=== PATIENT | female | born 1955 | race Caucasian/White ===

== ENCOUNTER 2017-11-25 09:43 | Inpatient (IN) ==
[2017-11-25 13:42] LABS: Basophils # 0.1 10*3/uL (0.0-0.2); Basophils % 0.4 % (0.0-0.8); Eosinophils % 0.1 % (0.00-10.9); Hematocrit 43.7 VOL% (35.7-47.0); Hemoglobin 14.1 GM/DL (12.0-16.0); Immature Granulocytes % 4.1 %; Immature Granulocytes Absolute 0.72 #; Lymphocytes # 1.7 10*3/uL (1.4-4.0); Lymphocytes % 9.7 % (21.3-54.2); Mean Corpuscular HGB Conc 32.3 GM/DL (32-36); Mean Corpuscular Hemoglobin 28 PG (27-34); Mean Corpuscular Volume 87.9 FL (87-102); Mean Platelet Volume 9.8 FL (9.6-12.0); Monocytes # 0.7 10*3/uL (0.11-0.8); Monocytes % 4.2 % (1.7-12.7); Neutrophils # 14.3 10*3/uL (1.4-7.4); Neutrophils % 81.5 % (38.7-73.9); Platelet Count 402 T/CUMM (130-400); Red Blood Count 4.97 MC/CUMM (3.8-5.5); White Blood Count 17.5 T/CUMM (4-12)
[2017-11-25] MEDS ORDERED: DICLOFENAC 1% GEL 100 GM TUBE TOP PRN (14:07)
[2017-11-25 14:24] LABS: Albumin 3.6 G/DL (3.4-5.0); Bilirubin,Total 0.4 MG/DL (0.2-1.0); Calcium 9.5 MG/DL (8.5-10.1); Total Protein 6.9 G/DL (6.4-8.3)
[2017-11-25 14:25] LABS: Magnesium 2.4 MG/DL (1.8-2.4); Osmolality,Calculated 281.7 MOS/KG (273-304); Potassium 4.5 MMOL/L (3.5-5.1); Thyroid Stimulating Hormone 1.89 uIU/ml (0.358-3.74)
[2017-11-25 14:31] LABS: Band Neutrophils 1 % (0-10); Lymphocytes 12 % (20-55); Segmented Neutrophils 82 % (50-85); Total Cells Counted 100
[2017-11-25 14:32] LABS: Platelet Estimate Increased
[2017-11-25] MEDS: ALBUTEROL/IPRATROPIUM 3 ML NEB RESP TX SCH ×2 (14:32→19:46)
[2017-11-25] MEDS: PREGABALIN 50 MG CAPSULE PO SCH ×2 (14:50→20:54)
[2017-11-25] MEDS: methylPREDNISolone SOD SUC 40 MG/1 ML VIAL IV SCH ×2 (14:51→20:55)
[2017-11-25] MEDS: AMINOPHYLLINE 250 MG in SODIUM CHLORIDE 0.9% 100 ML IV ONE ×2 (14:53→16:37)
[2017-11-25] MEDS: FLUCONAZOLE 200 MG TABLET PO SCH (15:48)
[2017-11-25] MEDS: POTASSIUM IODIDE ORAL SOLN 1,000 MG/ML BOTTLE PO SCH ×2 (15:49→20:50)
[2017-11-25] MEDS: ALBUTEROL 0.4 MG/ML 30 ML/BOTTLE PO SCH ×2 (15:49→20:52)
[2017-11-25] MEDS: MEROPENEM 1,000 MG in SYRINGE 1 EACH IV SCH ×2 (15:50→22:35)
[2017-11-25] MEDS: AMINOPHYLLINE 500 MG in SODIUM CHLORIDE 0.9% 480 ML IV SCH (20:50)
[2017-11-25] MEDS: AZELASTINE NASAL 137 MCG/SPRAY 30 ML BOTTLE BOTH NARES SCH (20:53)
[2017-11-25] MEDS: BUDESONIDE/FORMOTEROL 80-4.5 INHALER 6.9 GM INH SCH (20:53)
[2017-11-25] MEDS: MONTELUKAST 10 MG TABLET PO SCH (20:54)
[2017-11-25] MEDS: amLODIPine 10 MG TABLET PO SCH (20:54)
[2017-11-25] MEDS: METOPROLOL SUCCINATE XL 25 MG TABLET PO SCH (20:54)
[2017-11-25 21:30] LABS: Apearance,Urine CLEAR (Clear); Bilirubin,Urine Negative (Negative); Blood, Urine Negative (Negative); Glucose,Urine (UA) 50 mg/dL (Negative); Ketones,Urine Negative (Negative); Nitrite,Urine Negative (Negative); Protein,Urine Negative; RBC,Urine <1 /HPF (0-4); Squamous Epithelial Cell,Urine Occasional /HPF (0-10); Urine Color Colorless (Yellow); Urine Specific Gravity 1.005 (1.001-1.035); Urine Urobilinogen < 2.0 EU/DL (0.2-1.0); WBC,Urine <1 /HPF (0-6)
[2017-11-25] MEDS: IMIPRAMINE 25 MG TABLET PO SCH (22:33)
[2017-11-25] MEDS: aMILoride 5 MG TABLET PO SCH (22:33)
[2017-11-25] MEDS ORDERED: PANTOPRAZOLE 40 MG TABLET PO ONE (22:40)
[2017-11-26] MEDS: ALBUTEROL/IPRATROPIUM 3 ML NEB RESP TX PRN (02:58)
[2017-11-26] MEDS: methylPREDNISolone SOD SUC 40 MG/1 ML VIAL IV SCH ×3 (06:19→20:15)
[2017-11-26] MEDS: MEROPENEM 1,000 MG in SYRINGE 1 EACH IV SCH ×3 (06:22→21:08)
[2017-11-26 06:41] LABS: Basophils # 0.1 10*3/uL (0.0-0.2); Basophils % 0.5 % (0.0-0.8); Hematocrit 40.6 VOL% (35.7-47.0); Hemoglobin 13.3 GM/DL (12.0-16.0); Immature Granulocytes % 6.7 %; Immature Granulocytes Absolute 1.16 #; Lymphocytes # 1.6 10*3/uL (1.4-4.0); Lymphocytes % 9.1 % (21.3-54.2); Mean Corpuscular HGB Conc 32.8 GM/DL (32-36); Mean Corpuscular Hemoglobin 28 PG (27-34); Mean Corpuscular Volume 86.6 FL (87-102); Monocytes # 0.6 10*3/uL (0.11-0.8); Monocytes % 3.2 % (1.7-12.7); Neutrophils # 14.1 10*3/uL (1.4-7.4); Neutrophils % 80.5 % (38.7-73.9); Platelet Count 408 T/CUMM (130-400); Red Blood Count 4.69 MC/CUMM (3.8-5.5); Red Cell Distribution Width 13.8 % (9.3-17.3); White Blood Count 17.4 T/CUMM (4-12)
[2017-11-26 07:10] LABS: Calcium 8.9 MG/DL (8.5-10.1); Potassium 3.9 MMOL/L (3.5-5.1)
[2017-11-26] MEDS: ALBUTEROL/IPRATROPIUM 3 ML NEB RESP TX SCH ×4 (07:39→19:19)
[2017-11-26 07:42] LABS: Hypochromasia 1+; Lymphocytes 14 % (20-55); Metamyelocytes 1 %; Microcytosis 1+; Segmented Neutrophils 80 % (50-85); Total Cells Counted 100
[2017-11-26 07:43] LABS: Platelet Estimate Increased
[2017-11-26] MEDS: ESTRADIOL 1 MG TABLET PO SCH (09:19)
[2017-11-26] MEDS: METOPROLOL SUCCINATE XL 25 MG TABLET PO SCH ×2 (09:19→20:15)
[2017-11-26] MEDS: CALCIUM (CARBONATE)/VITAMIN D 600 MG-400 UNIT TABLET PO SCH (09:19)
[2017-11-26] MEDS: FLUTICASONE 50 MCG NASAL SPRAY 16 GM BOTTLE BOTH NARES SCH (09:20)
[2017-11-26] MEDS: POTASSIUM IODIDE ORAL SOLN 1,000 MG/ML BOTTLE PO SCH ×3 (09:20→20:16)
[2017-11-26] MEDS: PANTOPRAZOLE 40 MG TABLET PO SCH (09:20)
[2017-11-26] MEDS: PREGABALIN 50 MG CAPSULE PO SCH ×3 (09:20→20:15)
[2017-11-26] MEDS: MONTELUKAST 10 MG TABLET PO SCH ×2 (09:20→20:15)
[2017-11-26] MEDS: aMILoride 5 MG TABLET PO SCH ×2 (09:20→20:17)
[2017-11-26] MEDS: amLODIPine 5 MG TABLET PO SCH (09:20)
[2017-11-26] MEDS: AZELASTINE NASAL 137 MCG/SPRAY 30 ML BOTTLE BOTH NARES SCH ×2 (09:20→20:16)
[2017-11-26] MEDS: POTASSIUM CHLORIDE 10 MEQ TABLET PO SCH (09:20)
[2017-11-26] MEDS: FLUCONAZOLE 200 MG TABLET PO SCH (09:20)
[2017-11-26] MEDS: BUDESONIDE/FORMOTEROL 80-4.5 INHALER 6.9 GM INH SCH ×2 (09:21→20:16)
[2017-11-26] MEDS: ALBUTEROL 0.4 MG/ML 30 ML/BOTTLE PO SCH ×3 (09:21→20:15)
[2017-11-26] MEDS: AMINOPHYLLINE 500 MG in SODIUM CHLORIDE 0.9% 480 ML IV SCH (18:03)
[2017-11-26] MEDS: IMIPRAMINE 25 MG TABLET PO SCH (20:15)
[2017-11-26] MEDS: amLODIPine 10 MG TABLET PO SCH (20:15)
[2017-11-26] MEDS ORDERED: PANTOPRAZOLE 40 MG TABLET PO ONE (22:28)
[2017-11-27] MEDS: ALBUTEROL/IPRATROPIUM 3 ML NEB RESP TX PRN ×2 (01:15→05:15)
[2017-11-27] MEDS: EPINEPHrine 1 MG/ML VIAL SUBCUT PRN (04:03)
[2017-11-27] MEDS: MEROPENEM 1,000 MG in SYRINGE 1 EACH IV SCH ×3 (05:10→21:17)
[2017-11-27] MEDS: methylPREDNISolone SOD SUC 40 MG/1 ML VIAL IV SCH ×3 (05:11→21:17)
[2017-11-27 06:35] LABS: Basophils # 0.1 10*3/uL (0.0-0.2); Basophils % 0.3 % (0.0-0.8); Hematocrit 37.5 VOL% (35.7-47.0); Hemoglobin 12.4 GM/DL (12.0-16.0); Immature Granulocytes % 6.9 %; Immature Granulocytes Absolute 1.86 #; Lymphocytes # 1.9 10*3/uL (1.4-4.0); Mean Corpuscular HGB Conc 33.1 GM/DL (32-36); Mean Corpuscular Hemoglobin 29 PG (27-34); Mean Corpuscular Volume 86.6 FL (87-102); Monocytes # 1.2 10*3/uL (0.11-0.8); Monocytes % 4.5 % (1.7-12.7); Neutrophils # 21.7 10*3/uL (1.4-7.4); Neutrophils % 81.3 % (38.7-73.9); Platelet Count 403 T/CUMM (130-400); Red Blood Count 4.33 MC/CUMM (3.8-5.5); Red Cell Distribution Width 13.9 % (9.3-17.3); White Blood Count 26.8 T/CUMM (4-12)
[2017-11-27 07:03] LABS: Calcium 9.5 MG/DL (8.5-10.1)
[2017-11-27 07:04] LABS: Potassium 4.8 MMOL/L (3.5-5.1)
[2017-11-27 07:36] LABS: Band Neutrophils 4 % (0-10); Lymphocytes 5 % (20-55); Nucleated Red Blood Cells 1 (0-5); Segmented Neutrophils 87 % (50-85); Total Cells Counted 100
[2017-11-27 07:38] LABS: Polychromasia Slight
[2017-11-27] MEDS: ALBUTEROL/IPRATROPIUM 3 ML NEB RESP TX SCH ×4 (07:43→20:20)
[2017-11-27] MEDS: ESTRADIOL 1 MG TABLET PO SCH (08:52)
[2017-11-27] MEDS: MONTELUKAST 10 MG TABLET PO SCH ×2 (08:52→21:17)
[2017-11-27] MEDS: aMILoride 5 MG TABLET PO SCH ×2 (08:52→21:17)
[2017-11-27] MEDS: PANTOPRAZOLE 40 MG TABLET PO SCH (08:53)
[2017-11-27] MEDS: PREGABALIN 50 MG CAPSULE PO SCH ×3 (08:53→21:17)
[2017-11-27] MEDS: CALCIUM (CARBONATE)/VITAMIN D 600 MG-400 UNIT TABLET PO SCH (08:53)
[2017-11-27] MEDS: POTASSIUM CHLORIDE 10 MEQ TABLET PO SCH (08:53)
[2017-11-27] MEDS: amLODIPine 5 MG TABLET PO SCH (08:53)
[2017-11-27] MEDS: METOPROLOL SUCCINATE XL 25 MG TABLET PO SCH ×2 (08:53→21:17)
[2017-11-27] MEDS: FLUCONAZOLE 200 MG TABLET PO SCH (08:54)
[2017-11-27] MEDS: POTASSIUM IODIDE ORAL SOLN 1,000 MG/ML BOTTLE PO SCH ×3 (08:54→21:19)
[2017-11-27] MEDS: ALBUTEROL 0.4 MG/ML 30 ML/BOTTLE PO SCH ×3 (08:54→21:20)
[2017-11-27] MEDS: AZELASTINE NASAL 137 MCG/SPRAY 30 ML BOTTLE BOTH NARES SCH ×2 (09:00→21:19)
[2017-11-27] MEDS: FLUTICASONE 50 MCG NASAL SPRAY 16 GM BOTTLE BOTH NARES SCH (09:01)
[2017-11-27] MEDS: BUDESONIDE/FORMOTEROL 80-4.5 INHALER 6.9 GM INH SCH ×2 (09:01→21:19)
[2017-11-27] MEDS: AMINOPHYLLINE 500 MG in SODIUM CHLORIDE 0.9% 480 ML IV SCH (17:36)
[2017-11-27] MEDS: amLODIPine 10 MG TABLET PO SCH (21:17)
[2017-11-27] MEDS: IMIPRAMINE 25 MG TABLET PO SCH (21:17)
[2017-11-27] MEDS: ATORVASTATIN 10 MG TABLET PO SCH (21:17)
[2017-11-28] MEDS: ALBUTEROL/IPRATROPIUM 3 ML NEB RESP TX PRN ×2 (00:16→04:25)
[2017-11-28] MEDS: methylPREDNISolone SOD SUC 40 MG/1 ML VIAL IV SCH ×3 (05:38→21:27)
[2017-11-28] MEDS: MEROPENEM 1,000 MG in SYRINGE 1 EACH IV SCH ×3 (05:39→22:46)
[2017-11-28 06:05] LABS: Basophils # 0.1 10*3/uL (0.0-0.2); Basophils % 0.5 % (0.0-0.8); Hematocrit 38.9 VOL% (35.7-47.0); Hemoglobin 12.7 GM/DL (12.0-16.0); Immature Granulocytes % 8.1 %; Immature Granulocytes Absolute 2.31 #; Lymphocytes # 1.3 10*3/uL (1.4-4.0); Lymphocytes % 4.5 % (21.3-54.2); Mean Corpuscular HGB Conc 32.6 GM/DL (32-36); Mean Corpuscular Hemoglobin 28 PG (27-34); Monocytes # 1.3 10*3/uL (0.11-0.8); Monocytes % 4.4 % (1.7-12.7); Neutrophils # 23.5 10*3/uL (1.4-7.4); Neutrophils % 82.5 % (38.7-73.9); Platelet Count 398 T/CUMM (130-400); Red Blood Count 4.47 MC/CUMM (3.8-5.5); White Blood Count 28.5 T/CUMM (4-12)
[2017-11-28 06:26] LABS: Hypochromasia 1+; Lymphocytes 9 % (20-55); Metamyelocytes 2 %; Microcytosis Slight; Segmented Neutrophils 86 % (50-85); Total Cells Counted 100
[2017-11-28 06:27] LABS: Platelet Estimate Normal
[2017-11-28 06:32] LABS: Calcium 9.3 MG/DL (8.5-10.1); Osmolality,Calculated 283.1 MOS/KG (273-304); Potassium 4.6 MMOL/L (3.5-5.1)
[2017-11-28] MEDS: ALBUTEROL/IPRATROPIUM 3 ML NEB RESP TX SCH ×4 (07:42→20:14)
[2017-11-28] MEDS: CLORAZEPATE 3.75 MG TABLET PO PRN (09:11)
[2017-11-28] MEDS: amLODIPine 5 MG TABLET PO SCH (09:11)
[2017-11-28] MEDS: ESTRADIOL 1 MG TABLET PO SCH (09:11)
[2017-11-28] MEDS: CALCIUM (CARBONATE)/VITAMIN D 600 MG-400 UNIT TABLET PO SCH (09:11)
[2017-11-28] MEDS: MONTELUKAST 10 MG TABLET PO SCH ×2 (09:11→21:25)
[2017-11-28] MEDS: METOPROLOL SUCCINATE XL 25 MG TABLET PO SCH ×2 (09:11→21:27)
[2017-11-28] MEDS: POTASSIUM CHLORIDE 10 MEQ TABLET PO SCH (09:12)
[2017-11-28] MEDS: BENZONATATE 100 MG CAPSULE PO PRN ×2 (09:12→21:26)
[2017-11-28] MEDS: FLUCONAZOLE 200 MG TABLET PO SCH (09:12)
[2017-11-28] MEDS: FLUTICASONE 50 MCG NASAL SPRAY 16 GM BOTTLE BOTH NARES SCH (09:12)
[2017-11-28] MEDS: AZELASTINE NASAL 137 MCG/SPRAY 30 ML BOTTLE BOTH NARES SCH ×2 (09:13→21:31)
[2017-11-28] MEDS: PANTOPRAZOLE 40 MG TABLET PO SCH (09:13)
[2017-11-28] MEDS: PREGABALIN 50 MG CAPSULE PO SCH ×3 (09:13→21:26)
[2017-11-28] MEDS: aMILoride 5 MG TABLET PO SCH ×2 (09:13→21:39)
[2017-11-28] MEDS: POTASSIUM IODIDE ORAL SOLN 1,000 MG/ML BOTTLE PO SCH ×3 (09:14→21:31)
[2017-11-28] MEDS: BUDESONIDE/FORMOTEROL 80-4.5 INHALER 6.9 GM INH SCH ×2 (09:14→21:31)
[2017-11-28] MEDS: ALBUTEROL 0.4 MG/ML 30 ML/BOTTLE PO SCH ×3 (09:14→21:40)
[2017-11-28] MEDS: AMINOPHYLLINE 500 MG in SODIUM CHLORIDE 0.9% 480 ML IV SCH (18:39)
[2017-11-28] MEDS: amLODIPine 10 MG TABLET PO SCH (21:26)
[2017-11-28] MEDS: IMIPRAMINE 25 MG TABLET PO SCH (21:27)
[2017-11-28] MEDS: ACETAMINOPHEN 325 MG TABLET PO PRN (22:50)
[2017-11-29] MEDS: ALBUTEROL/IPRATROPIUM 3 ML NEB RESP TX PRN (00:43)
[2017-11-29] MEDS: EPINEPHrine 1 MG/ML VIAL SUBCUT PRN (02:12)
[2017-11-29] MEDS: methylPREDNISolone SOD SUC 40 MG/1 ML VIAL IV SCH ×3 (06:18→20:47)
[2017-11-29] MEDS: MEROPENEM 1,000 MG in SYRINGE 1 EACH IV SCH ×3 (06:21→21:33)
[2017-11-29] MEDS: ALBUTEROL/IPRATROPIUM 3 ML NEB RESP TX SCH ×4 (07:43→20:03)
[2017-11-29] MEDS: CLORAZEPATE 3.75 MG TABLET PO PRN (09:00)
[2017-11-29] MEDS: PREGABALIN 50 MG CAPSULE PO SCH (09:00)
[2017-11-29] MEDS: PANTOPRAZOLE 40 MG TABLET PO SCH (09:00)
[2017-11-29] MEDS: CALCIUM (CARBONATE)/VITAMIN D 600 MG-400 UNIT TABLET PO SCH (09:00)
[2017-11-29] MEDS: POTASSIUM CHLORIDE 10 MEQ TABLET PO SCH (09:00)
[2017-11-29] MEDS: METOPROLOL SUCCINATE XL 25 MG TABLET PO SCH ×2 (09:00→20:47)
[2017-11-29] MEDS: FLUTICASONE 50 MCG NASAL SPRAY 16 GM BOTTLE BOTH NARES SCH (09:01)
[2017-11-29] MEDS: aMILoride 5 MG TABLET PO SCH ×2 (09:01→20:46)
[2017-11-29] MEDS: amLODIPine 5 MG TABLET PO SCH (09:01)
[2017-11-29] MEDS: MONTELUKAST 10 MG TABLET PO SCH ×2 (09:01→20:46)
[2017-11-29] MEDS: FLUCONAZOLE 200 MG TABLET PO SCH (09:01)
[2017-11-29] MEDS: ATORVASTATIN 10 MG TABLET PO SCH (09:01)
[2017-11-29] MEDS: ESTRADIOL 1 MG TABLET PO SCH (09:01)
[2017-11-29] MEDS: BUDESONIDE/FORMOTEROL 80-4.5 INHALER 6.9 GM INH SCH ×2 (09:02→20:50)
[2017-11-29] MEDS: POTASSIUM IODIDE ORAL SOLN 1,000 MG/ML BOTTLE PO SCH ×3 (09:02→20:49)
[2017-11-29] MEDS: AZELASTINE NASAL 137 MCG/SPRAY 30 ML BOTTLE BOTH NARES SCH ×2 (09:02→20:49)
[2017-11-29] MEDS: ALBUTEROL 0.4 MG/ML 30 ML/BOTTLE PO SCH (10:01)
[2017-11-29] MEDS: AMINOPHYLLINE 500 MG in SODIUM CHLORIDE 0.9% 480 ML IV SCH (12:44)
[2017-11-29] MEDS: ALBUTEROL 2 MG TABLET PO SCH ×3 (14:41→21:32)
[2017-11-29] MEDS: amLODIPine 10 MG TABLET PO SCH (20:46)
[2017-11-29] MEDS: IMIPRAMINE 25 MG TABLET PO SCH (20:46)
[2017-11-29] MEDS: ACETAMINOPHEN 325 MG TABLET PO PRN (23:25)
[2017-11-30] MEDS: ALBUTEROL/IPRATROPIUM 3 ML NEB RESP TX PRN (02:37)
[2017-11-30] MEDS: methylPREDNISolone SOD SUC 40 MG/1 ML VIAL IV SCH ×3 (05:26→21:18)
[2017-11-30] MEDS: MEROPENEM 1,000 MG in SYRINGE 1 EACH IV SCH ×3 (05:29→21:17)
[2017-11-30] MEDS: ALBUTEROL/IPRATROPIUM 3 ML NEB RESP TX SCH ×4 (07:27→20:06)
[2017-11-30] MEDS: aMILoride 5 MG TABLET PO SCH ×2 (08:50→21:18)
[2017-11-30] MEDS: PANTOPRAZOLE 40 MG TABLET PO SCH (08:50)
[2017-11-30] MEDS: ALBUTEROL 2 MG TABLET PO SCH ×3 (08:50→21:18)
[2017-11-30] MEDS: ESTRADIOL 1 MG TABLET PO SCH (08:51)
[2017-11-30] MEDS: FLUCONAZOLE 200 MG TABLET PO SCH (08:51)
[2017-11-30] MEDS: amLODIPine 5 MG TABLET PO SCH (08:51)
[2017-11-30] MEDS: MONTELUKAST 10 MG TABLET PO SCH ×2 (08:51→21:19)
[2017-11-30] MEDS: CALCIUM (CARBONATE)/VITAMIN D 600 MG-400 UNIT TABLET PO SCH (08:51)
[2017-11-30] MEDS: PREGABALIN 50 MG CAPSULE PO SCH (08:51)
[2017-11-30] MEDS: METOPROLOL SUCCINATE XL 25 MG TABLET PO SCH ×2 (08:51→21:19)
[2017-11-30] MEDS: AZELASTINE NASAL 137 MCG/SPRAY 30 ML BOTTLE BOTH NARES SCH ×2 (08:52→21:19)
[2017-11-30] MEDS: POTASSIUM IODIDE ORAL SOLN 1,000 MG/ML BOTTLE PO SCH ×4 (08:52→21:19)
[2017-11-30] MEDS: FLUTICASONE 50 MCG NASAL SPRAY 16 GM BOTTLE BOTH NARES SCH (08:52)
[2017-11-30] MEDS: BUDESONIDE/FORMOTEROL 80-4.5 INHALER 6.9 GM INH SCH ×2 (08:52→21:19)
[2017-11-30] MEDS: POTASSIUM CHLORIDE 10 MEQ TABLET PO SCH (08:53)
[2017-11-30 15:11] LABS: Procalcitonin, S < 0.10 ng/mL (<=0.15)
[2017-11-30] MEDS: AMINOPHYLLINE 500 MG in SODIUM CHLORIDE 0.9% 480 ML IV SCH (19:21)
[2017-11-30] MEDS: EPINEPHrine 1 MG/ML VIAL SUBCUT SCH (21:18)
[2017-11-30] MEDS: amLODIPine 10 MG TABLET PO SCH (21:18)
[2017-11-30] MEDS: IMIPRAMINE 25 MG TABLET PO SCH (21:19)
[2017-12-01] MEDS: ALBUTEROL/IPRATROPIUM 3 ML NEB RESP TX PRN (01:51)
[2017-12-01] MEDS: ALBUTEROL 2 MG TABLET PO SCH ×3 (05:56→22:16)
[2017-12-01] MEDS: methylPREDNISolone SOD SUC 40 MG/1 ML VIAL IV SCH ×3 (05:56→21:06)
[2017-12-01] MEDS: MEROPENEM 1,000 MG in SYRINGE 1 EACH IV SCH ×3 (05:57→22:16)
[2017-12-01] MEDS: ALBUTEROL/IPRATROPIUM 3 ML NEB RESP TX SCH ×4 (07:00→19:45)
[2017-12-01] MEDS: AZELASTINE NASAL 137 MCG/SPRAY 30 ML BOTTLE BOTH NARES SCH ×2 (08:54→21:08)
[2017-12-01] MEDS: FLUTICASONE 50 MCG NASAL SPRAY 16 GM BOTTLE BOTH NARES SCH (08:55)
[2017-12-01] MEDS: CALCIUM (CARBONATE)/VITAMIN D 600 MG-400 UNIT TABLET PO SCH (08:56)
[2017-12-01] MEDS: PREGABALIN 50 MG CAPSULE PO SCH (08:57)
[2017-12-01] MEDS: METOPROLOL SUCCINATE XL 25 MG TABLET PO SCH ×2 (08:57→21:04)
[2017-12-01] MEDS: ESTRADIOL 1 MG TABLET PO SCH (08:57)
[2017-12-01] MEDS: ATORVASTATIN 10 MG TABLET PO SCH (08:57)
[2017-12-01] MEDS: aMILoride 5 MG TABLET PO SCH ×2 (08:57→21:04)
[2017-12-01] MEDS: BENZONATATE 100 MG CAPSULE PO PRN (08:57)
[2017-12-01] MEDS: PANTOPRAZOLE 40 MG TABLET PO SCH (08:58)
[2017-12-01] MEDS: MONTELUKAST 10 MG TABLET PO SCH ×2 (08:58→21:04)
[2017-12-01] MEDS: POTASSIUM CHLORIDE 10 MEQ TABLET PO SCH (08:58)
[2017-12-01] MEDS: FLUCONAZOLE 200 MG TABLET PO SCH (08:58)
[2017-12-01] MEDS: amLODIPine 5 MG TABLET PO SCH (08:58)
[2017-12-01] MEDS: BUDESONIDE/FORMOTEROL 80-4.5 INHALER 6.9 GM INH SCH ×2 (08:59→21:19)
[2017-12-01] MEDS: POTASSIUM IODIDE ORAL SOLN 1,000 MG/ML BOTTLE PO SCH ×3 (08:59→21:06)
[2017-12-01] MEDS: THEOPHYLLINE ER (24 HR) 200 MG CAPSULE PO SCH (21:04)
[2017-12-01] MEDS: IMIPRAMINE 25 MG TABLET PO SCH (21:04)
[2017-12-01] MEDS: amLODIPine 10 MG TABLET PO SCH (21:04)
[2017-12-01] MEDS: AMINOPHYLLINE 500 MG in SODIUM CHLORIDE 0.9% 480 ML IV SCH (21:07)
[2017-12-01] MEDS: EPINEPHrine 1 MG/ML VIAL SUBCUT SCH (21:07)
[2017-12-02] MEDS: ALBUTEROL/IPRATROPIUM 3 ML NEB RESP TX PRN (03:01)
[2017-12-02] MEDS: ALBUTEROL 2 MG TABLET PO SCH ×2 (06:03→14:43)
[2017-12-02] MEDS: methylPREDNISolone SOD SUC 40 MG/1 ML VIAL IV SCH ×2 (06:04→14:43)
[2017-12-02] MEDS: MEROPENEM 1,000 MG in SYRINGE 1 EACH IV SCH ×2 (06:05→14:45)
[2017-12-02] MEDS: ALBUTEROL/IPRATROPIUM 3 ML NEB RESP TX SCH ×3 (08:04→16:26)
[2017-12-02] MEDS: amLODIPine 5 MG TABLET PO SCH (09:10)
[2017-12-02] MEDS: BENZONATATE 100 MG CAPSULE PO PRN (09:11)
[2017-12-02] MEDS: METOPROLOL SUCCINATE XL 25 MG TABLET PO SCH (09:11)
[2017-12-02] MEDS: POTASSIUM CHLORIDE 10 MEQ TABLET PO SCH (09:11)
[2017-12-02] MEDS: CALCIUM (CARBONATE)/VITAMIN D 600 MG-400 UNIT TABLET PO SCH (09:11)
[2017-12-02] MEDS: aMILoride 5 MG TABLET PO SCH (09:11)
[2017-12-02] MEDS: ESTRADIOL 1 MG TABLET PO SCH (09:11)
[2017-12-02] MEDS: PREGABALIN 50 MG CAPSULE PO SCH (09:12)
[2017-12-02] MEDS: FLUCONAZOLE 200 MG TABLET PO SCH (09:12)
[2017-12-02] MEDS: POTASSIUM IODIDE ORAL SOLN 1,000 MG/ML BOTTLE PO SCH ×2 (09:12→14:46)
[2017-12-02] MEDS: CLORAZEPATE 3.75 MG TABLET PO PRN (09:12)
[2017-12-02] MEDS: MONTELUKAST 10 MG TABLET PO SCH (09:12)
[2017-12-02] MEDS: FLUTICASONE 50 MCG NASAL SPRAY 16 GM BOTTLE BOTH NARES SCH (09:13)
[2017-12-02] MEDS: BUDESONIDE/FORMOTEROL 80-4.5 INHALER 6.9 GM INH SCH (09:13)
[2017-12-02] MEDS: AZELASTINE NASAL 137 MCG/SPRAY 30 ML BOTTLE BOTH NARES SCH (09:13)
[2017-12-02] MEDS: PANTOPRAZOLE 40 MG TABLET PO SCH (09:13)
[2017-12-02] MEDS: THEOPHYLLINE ER (24 HR) 200 MG CAPSULE PO SCH ×2 (09:13→17:35)
[2017-12-02 15:48] VITALS: BP 138/66
[2017-12-02] MEDS ORDERED: aMILoride 5 MG TABLET PO ONE (16:37)
[2017-12-02] MEDS ORDERED: MONTELUKAST 10 MG TABLET PO PRN (16:38)
[2017-12-02] MEDS ORDERED: ALBUTEROL 2 MG TABLET PO PRN (16:38)
[2017-12-02] MEDS ORDERED: POTASSIUM IODIDE ORAL SOLN 1,000 MG/ML BOTTLE PO SCH (21:00)
[2017-12-02] MEDS ORDERED: METOPROLOL SUCCINATE XL 50 MG TABLET PO SCH (21:00)
[2017-12-02] MEDS ORDERED: NON-FORMULARY MEDICATION (Lansoprazole [Prevacid] 30 MG) PO SCH (21:00)
[2017-12-02] MEDS ORDERED: BUDESONIDE/FORMOTEROL 80-4.5 INHALER 6.9 GM INH SCH (21:00)
[2017-12-02] MEDS ORDERED: PREGABALIN 50 MG CAPSULE PO SCH (21:00)
[2017-12-02] MEDS ORDERED: aMILoride 5 MG TABLET PO SCH (21:00)
[2017-12-03] MEDS ORDERED: AZELASTINE NASAL 137 MCG/SPRAY 30 ML BOTTLE BOTH NARES SCH (09:00)
[2017-12-03] MEDS ORDERED: ATORVASTATIN 10 MG TABLET PO SCH (09:00)
[2017-12-03] MEDS ORDERED: amLODIPine 5 MG TABLET PO SCH (09:00)
[2017-12-03] MEDS ORDERED: FLUTICASONE 50 MCG NASAL SPRAY 16 GM BOTTLE BOTH NARES SCH (09:00)
[2017-12-03] MEDS ORDERED: IMIPRAMINE 25 MG TABLET PO SCH (09:00)
== END 2017-12-02 18:25 | disposition home or self-care (01) | DRG 202 ==
LOC: N.5E 12:56
PROVIDERS: ADMIT Internal Medicine Pulmonary Disease; ATTEND Internal Medicine Pulmonary Disease

== ENCOUNTER 2021-04-18 01:23 | Inpatient (IN) ==
[2021-04-18] MEDS ORDERED: ONDANSETRON 4 MG/2 ML VIAL IM STA (03:16)
[2021-04-18] MEDS ORDERED: PANTOPRAZOLE 40 MG VIAL IV STA (03:16)
[2021-04-18] MEDS ORDERED: ONDANSETRON 4 MG/2 ML VIAL IV STA (03:18)
[2021-04-18] MEDS ORDERED: SODIUM CHLORIDE 0.9% 1,000 ML IV STA ×3 (03:18→08:19)
[2021-04-18 03:25] LABS: Basophils # 0.1 10*3/uL (0.0-0.2); Basophils % 0.2 % (0.0-0.8); Hemoglobin 15.3 GM/DL (12.0-16.0); Immature Granulocytes Absolute 1.33 #; Lymphocytes % 4.6 % (21.3-54.2); Mean Corpuscular HGB Conc 32.6 GM/DL (32-36); Mean Corpuscular Volume 90.6 FL (87-102); Mean Platelet Volume 9.8 FL (9.6-12.0); Neutrophils % 84.2 % (38.7-73.9); Platelet Count 443 T/CUMM (130-400); Red Blood Count 5.19 MC/CUMM (3.8-5.5); Red Cell Distribution Width 14.6 % (9.3-17.3)
[2021-04-18 03:32] LABS: PT Patient Result 11.3 SECS (10.5-12.0); Partial Thromboplastin Time 29.1 SECS (23.9-33.8)
[2021-04-18 03:46] LABS: Albumin 3.6 G/DL (3.4-5.0); Bilirubin,Total 0.7 MG/DL (0.2-1.0); Calcium 8.9 MG/DL (8.5-10.1); Osmolality,Calculated 271.5 MOS/KG (273-304); Potassium 4.4 MMOL/L (3.5-5.1); Total Protein 7.4 G/DL (6.4-8.2)
[2021-04-18] MEDS ORDERED: VANCOMYCIN INJ 750 MG in SODIUM CHLORIDE 0.9% 250 ML IV STA (04:05)
[2021-04-18 04:14] LABS: Lymphocytes 7 % (20-55); Platelet Estimate Increased; Segmented Neutrophils 87 % (50-85); Total Cells Counted 100
[2021-04-18 04:15] LABS: Anisocytosis 1+; Macrocytosis 1+
[2021-04-18] MEDS ORDERED: HYDROmorphone 2 MG/1 ML VIAL IV STA (05:10)
[2021-04-18 06:26] LABS: Bilirubin,Urine Negative (Negative); Blood, Urine Negative (Negative); Glucose,Urine (UA) Negative (Negative); Hyaline Casts,Urine 9 /LPF (0-3); Ketones,Urine 5 mg/dL (Negative); Mucus,Urine Occasional /LPF (Occasional); Nitrite,Urine Negative (Negative); Protein,Urine Negative; RBC,Urine 1 /HPF (0-4); Squamous Epithelial Cell,Urine Occasional /HPF (0-10); Urine Appearance CLEAR (Clear); Urine Color Yellow (Yellow); Urine Specific Gravity 1.015 (1.001-1.035); Urine Urobilinogen < 2.0 EU/DL (0.2-1.0)
[2021-04-18] MEDS ORDERED: GLUCAGON 1 MG VIAL IM PRN (07:13)
[2021-04-18] MEDS ORDERED: ONDANSETRON 4 MG/2 ML VIAL IV PRN (07:13)
[2021-04-18] MEDS ORDERED: DEXTROSE 50% 25 GM/50 ML VIAL IV PRN (07:13)
[2021-04-18] MEDS ORDERED: SODIUM CHLORIDE 0.9% 1,000 ML IV SCH (07:30)
[2021-04-18] MEDS ORDERED: ENOXAPARIN 40 MG/0.4 ML SYRINGE SUBCUT SCH (07:30)
[2021-04-18] MEDS: metroNIDAZOLE INJ 500 MG/100 ML PREMIX IV SCH ×2 (07:46→16:48)
[2021-04-18] MEDS ORDERED: CIPROFLOXACIN INJ 400 MG/200 ML PREMIX IV SCH (08:00)
[2021-04-18] MEDS: LACTATED RINGERS 1,000 ML IV SCH ×3 (10:32→23:31)
[2021-04-18] MEDS: HYDROmorphone 2 MG/1 ML VIAL IV PRN ×2 (10:33→19:43)
[2021-04-18] MEDS ORDERED: MORPHINE 4 MG/1 ML VIAL ONE (11:29)
[2021-04-18] MEDS ORDERED: ALBUTEROL 2.5 MG/3 ML NEB RESP TX ONE ×2 (11:29→11:34)
[2021-04-18] MEDS ORDERED: MORPHINE 4 MG/1 ML VIAL IV ONE (11:30)
[2021-04-18] MEDS ORDERED: DILTIAZEM 50 MG/10 ML VIAL IV ONE (11:36)
[2021-04-18] MEDS ORDERED: MORPHINE 4 MG/1 ML VIAL IM ONE (11:43)
[2021-04-18 11:59] LABS: Basophils # 0.1 10*3/uL (0.0-0.2); Basophils % 0.3 % (0.0-0.8); Hematocrit 47.2 VOL% (35.7-47.0); Hemoglobin 14.7 GM/DL (12.0-16.0); Immature Granulocytes % 4.5 %; Immature Granulocytes Absolute 1.96 #; Lymphocytes # 1.8 10*3/uL (1.4-4.0); Mean Corpuscular HGB Conc 31.1 GM/DL (32-36); Mean Corpuscular Volume 95.2 FL (87-102); Mean Platelet Volume 10.3 FL (9.6-12.0); Monocytes % 8.4 % (1.7-12.7); Neutrophils % 82.8 % (38.7-73.9); Platelet Count 415 T/CUMM (130-400); Red Blood Count 4.96 MC/CUMM (3.8-5.5); Red Cell Distribution Width 14.8 % (9.3-17.3)
[2021-04-18 12:02] LABS: White Blood Count 43.8 T/CUMM (4-12)
[2021-04-18] MEDS ORDERED: ALBUTEROL 2.5 MG/3 ML NEB RESP TX PRN (12:20)
[2021-04-18 12:21] LABS: Band Neutrophils 6 % (0-10); Hypochromasia 1+; Lymphocytes 8 % (20-55); Segmented Neutrophils 81 % (50-85); Total Cells Counted 100
[2021-04-18 12:22] LABS: Macrocytosis 1+
[2021-04-18 12:28] LABS: Calcium 8.2 MG/DL (8.5-10.1); Osmolality,Calculated 278.2 MOS/KG (273-304); Potassium 4.4 MMOL/L (3.5-5.1)
[2021-04-18 12:32] LABS: High Sensitive Troponin I* 14.3 ng/L (0-54)
[2021-04-18] MEDS ORDERED: VANCOMYCIN INJ 2,250 MG in SODIUM CHLORIDE 0.9% 500 ML IV ONE (13:30)
[2021-04-18 13:37] LABS: INR 1.1; PT Patient Result 12.2 SECS (10.5-12.0)
[2021-04-18] MEDS: CEFEPIME 1,000 MG in SODIUM CHLORIDE 0.9% 100 ML IV SCH ×2 (14:03→19:39)
[2021-04-18] MEDS ORDERED: LIDOCAINE 2% 5 ML VIAL ONE (14:37)
[2021-04-18] MEDS ORDERED: ETOMIDATE 40 MG/20 ML VIAL IV ONE (14:37)
[2021-04-18] MEDS ORDERED: SUCCINYLCHOLINE 200 MG/10 ML VIAL ONE (14:37)
[2021-04-18] MEDS ORDERED: propofoL 200 MG/20 ML VIAL IV ONE (14:37)
[2021-04-18] MEDS ORDERED: fentaNYL 100 MCG/2 ML VIAL ONE ×2 (14:37→15:53)
[2021-04-18] MEDS ORDERED: MIDAZOLAM 2 MG/2 ML VIAL ONE ×2 (14:37→14:46)
[2021-04-18] MEDS ORDERED: ROCURONIUM 50 MG/5 ML VIAL IV ONE ×2 (14:38→16:04)
[2021-04-18] MEDS ORDERED: PHENYLEPHRINE 1 MG/10 ML SYRINGE IV ONE (15:23)
[2021-04-18] MEDS ORDERED: ALBUMIN 5% 25.0 GM/500 ML VIAL IV ONE (15:46)
[2021-04-18] MEDS ORDERED: SODIUM CHLORIDE 0.9% 1,000 ML IV ONE (15:53)
[2021-04-18] MEDS ORDERED: SEVOFLURANE 1 UNIT/15 MINUTE INH ONE (16:14)
[2021-04-18] MEDS: HYDROCORTISONE 100 MG VIAL IV SCH ×2 (16:48→23:30)
[2021-04-18 17:04] LABS: ABG HCO3 18.6 MMOL/L (20-26); ABG Oxygen Saturation 99.3 % (95-100); ABG PCO2 46.8 MM HG (35-48); ABG PH 7.216 (7.35-7.45); ABG PO2 317.5 MM HG (80-95)
[2021-04-18] MEDS: MORPHINE 4 MG/1 ML VIAL IV PRN ×2 (17:28→22:31)
[2021-04-18] MEDS ORDERED: LACTATED RINGERS 1,000 ML IV ONE (20:51)
[2021-04-18] MEDS ORDERED: ALBUMIN 5% 25 GM/500 ML VIAL IV ONE (20:57)
[2021-04-18 21:14] LABS: ABG Base Excess -6.6 MMOL/L (-2.5-2.5); ABG HCO3 19.1 MMOL/L (20-26); ABG Oxygen Saturation 98.5 % (95-100); ABG PCO2 32.1 MM HG (35-48); ABG PH 7.355 (7.35-7.45); ABG TCO2 15.7 MMOL/L (23-27)
[2021-04-18] MEDS: ACETAMINOPHEN 325 MG TABLET PO PRN (23:55)
[2021-04-19] MEDS: metroNIDAZOLE INJ 500 MG/100 ML PREMIX IV SCH ×3 (00:07→17:08)
[2021-04-19] MEDS: HYDROmorphone 2 MG/1 ML VIAL IV PRN ×3 (01:20→11:50)
[2021-04-19] MEDS: MORPHINE 4 MG/1 ML VIAL IV PRN ×2 (03:22→13:17)
[2021-04-19] MEDS: CEFEPIME 1,000 MG in SODIUM CHLORIDE 0.9% 100 ML IV SCH ×3 (03:30→20:08)
[2021-04-19 03:58] LABS: Albumin 2.8 G/DL (3.4-5.0); Bilirubin,Total 0.7 MG/DL (0.2-1.0); Calcium 7.2 MG/DL (8.5-10.1); Osmolality,Calculated 277.8 MOS/KG (273-304); Potassium 4.3 MMOL/L (3.5-5.1); Total Protein 5.4 G/DL (6.4-8.2)
[2021-04-19 04:01] LABS: Basophils % 0.2 % (0.0-0.8); Hematocrit 36.7 VOL% (35.7-47.0); Immature Granulocytes % 0.1 %; Immature Granulocytes Absolute 0.02 #; Lymphocytes # 0.4 10*3/uL (1.4-4.0); Lymphocytes % 2.7 % (21.3-54.2); Mean Corpuscular HGB Conc 31.6 GM/DL (32-36); Mean Corpuscular Volume 93.9 FL (87-102); Mean Platelet Volume 9.9 FL (9.6-12.0); Monocytes % 4.4 % (1.7-12.7); Neutrophils % 92.6 % (38.7-73.9); Red Cell Distribution Width 14.9 % (9.3-17.3)
[2021-04-19 04:02] LABS: Hemoglobin 11.6 GM/DL (12.0-16.0); Red Blood Count 3.91 MC/CUMM (3.8-5.5); White Blood Count 14.2 T/CUMM (4-12)
[2021-04-19 04:03] LABS: Platelet Count 324 T/CUMM (130-400)
[2021-04-19 04:29] LABS: Band Neutrophils 10 % (0-10); Hypochromasia Slight; Lymphocytes 6 % (20-55); Metamyelocytes 7 %; Myelocytes 1 %; Segmented Neutrophils 73 % (50-85); Total Cells Counted 100
[2021-04-19 04:30] LABS: Microcytosis 1+; Platelet Estimate Normal
[2021-04-19 04:52] LABS: ABG Base Excess -5.8 MMOL/L (-2.5-2.5); ABG HCO3 18.7 MMOL/L (20-26); ABG Oxygen Saturation 98.6 % (95-100); ABG PCO2 33.4 MM HG (35-48); ABG PH 7.365 (7.35-7.45); ABG PO2 135.8 MM HG (80-95); ABG TCO2 19.7 MMOL/L (23-27); Allen Test Positive; Pt O2 Delivery Device Ventilator
[2021-04-19] MEDS: LACTATED RINGERS 1,000 ML IV SCH ×5 (05:31→20:01)
[2021-04-19] MEDS: HYDROCORTISONE 100 MG VIAL IV SCH ×3 (06:36→17:46)
[2021-04-19 09:54] LABS: Basophils % 0.2 % (0.0-0.8); Hematocrit 34.9 VOL% (35.7-47.0); Hemoglobin 11.3 GM/DL (12.0-16.0); Immature Granulocytes % 0.4 %; Immature Granulocytes Absolute 0.07 #; Lymphocytes # 0.4 10*3/uL (1.4-4.0); Lymphocytes % 2.3 % (21.3-54.2); Mean Corpuscular HGB Conc 32.4 GM/DL (32-36); Mean Corpuscular Volume 92.8 FL (87-102); Mean Platelet Volume 9.9 FL (9.6-12.0); Neutrophils % 94.1 % (38.7-73.9); Platelet Count 300 T/CUMM (130-400); Red Blood Count 3.76 MC/CUMM (3.8-5.5); White Blood Count 16.4 T/CUMM (4-12)
[2021-04-19] MEDS: PANTOPRAZOLE 40 MG VIAL IV SCH (09:57)
[2021-04-19 10:14] LABS: Band Neutrophils 14 % (0-10); Lymphocytes 2 % (20-55); Metamyelocytes 2 %; Segmented Neutrophils 79 % (50-85); Total Cells Counted 100
[2021-04-19 10:15] LABS: Hypochromasia Slight; Microcytosis 1+
[2021-04-19] MEDS: HEPARIN 5,000 UNIT/1 ML VIAL SUBCUT SCH ×2 (11:53→18:25)
[2021-04-19] MEDS ORDERED: VANCOMYCIN INJ 1,500 MG in SODIUM CHLORIDE 0.9% 500 ML IV SCH (13:30)
[2021-04-19] MEDS: fentaNYL INJ 1,250 MCG in SODIUM CHLORIDE 0.9% 225 ML IV PRN ×2 (13:51→19:53)
[2021-04-19] MEDS: ACETAMINOPHEN 325 MG TABLET PO PRN (17:21)
[2021-04-20] MEDS: LACTATED RINGERS 1,000 ML IV SCH ×4 (00:31→19:52)
[2021-04-20] MEDS: fentaNYL INJ 1,250 MCG in SODIUM CHLORIDE 0.9% 225 ML IV PRN ×4 (01:35→20:47)
[2021-04-20] MEDS: metroNIDAZOLE INJ 500 MG/100 ML PREMIX IV SCH ×3 (02:42→17:47)
[2021-04-20] MEDS: HEPARIN 5,000 UNIT/1 ML VIAL SUBCUT SCH ×3 (02:42→18:33)
[2021-04-20] MEDS: HYDROCORTISONE 100 MG VIAL IV SCH ×3 (02:42→18:32)
[2021-04-20 04:02] LABS: Basophils % 0.2 % (0.0-0.8); Hematocrit 33.2 VOL% (35.7-47.0); Hemoglobin 10.3 GM/DL (12.0-16.0); Immature Granulocytes % 0.6 %; Immature Granulocytes Absolute 0.11 #; Lymphocytes # 0.7 10*3/uL (1.4-4.0); Lymphocytes % 3.9 % (21.3-54.2); Mean Corpuscular Volume 94.9 FL (87-102); Mean Platelet Volume 9.8 FL (9.6-12.0); Monocytes % 4.1 % (1.7-12.7); Neutrophils % 91.2 % (38.7-73.9); Platelet Count 263 T/CUMM (130-400); Red Cell Distribution Width 15.2 % (9.3-17.3); White Blood Count 17.7 T/CUMM (4-12)
[2021-04-20 04:24] LABS: Band Neutrophils 7 % (0-10); Hypochromasia 1+; Lymphocytes 2 % (20-55); Metamyelocytes 1 %; Microcytosis 1+; Segmented Neutrophils 86 % (50-85); Total Cells Counted 100
[2021-04-20 04:25] LABS: Albumin 2.2 G/DL (3.4-5.0); Bilirubin,Total 0.4 MG/DL (0.2-1.0); Calcium 7.4 MG/DL (8.5-10.1); Osmolality,Calculated 275.8 MOS/KG (273-304); Platelet Estimate Normal; Potassium 4.3 MMOL/L (3.5-5.1); Total Protein 5.5 G/DL (6.4-8.2)
[2021-04-20 04:27] LABS: ABG Base Excess -3.5 MMOL/L (-2.5-2.5); ABG HCO3 22.5 MMOL/L (20-26); ABG Oxygen Saturation 98.5 % (95-100); ABG PCO2 44.2 MM HG (35-48); ABG PH 7.324 (7.35-7.45); ABG PO2 137.2 MM HG (80-95); ABG TCO2 23.8 MMOL/L (23-27); Allen Test Positive; Pt O2 Delivery Device Ventilator
[2021-04-20 04:36] LABS: Albumin 2.2 G/DL (3.4-5.0); Bilirubin,Direct 0.16 MG/DL (0.0-0.20); Bilirubin,Indirect 0.2 MG/DL (0.0-1.0); Bilirubin,Total 0.4 MG/DL (0.2-1.0); Calcium 7.4 MG/DL (8.5-10.1); Osmolality,Calculated 275.8 MOS/KG (273-304); Potassium 4.3 MMOL/L (3.5-5.1); Total Protein 5.5 G/DL (6.4-8.2)
[2021-04-20] MEDS: CEFEPIME 1,000 MG in SODIUM CHLORIDE 0.9% 100 ML IV SCH ×4 (04:56→22:11)
[2021-04-20] MEDS: PANTOPRAZOLE 40 MG VIAL IV SCH (09:17)
[2021-04-20] MEDS ORDERED: GLYCOPYRROLATE 0.4 MG/2 ML VIAL ONE (12:54)
[2021-04-20] MEDS ORDERED: ROCURONIUM 50 MG/5 ML VIAL IV ONE ×2 (12:54→13:50)
[2021-04-20] MEDS ORDERED: MIDAZOLAM 10 MG/2 ML VIAL ONE (12:57)
[2021-04-20] MEDS ORDERED: fentaNYL 100 MCG/2 ML VIAL ONE ×2 (12:57→13:29)
[2021-04-20] MEDS ORDERED: ESMOLOL 100 MG/10 ML VIAL IV ONE (13:34)
[2021-04-20] MEDS ORDERED: fentaNYL 250 MCG/5 ML VIAL ONE (13:39)
[2021-04-20] MEDS ORDERED: SEVOFLURANE 1 UNIT/15 MINUTE INH ONE (14:16)
[2021-04-20] MEDS: MANGANESE IV SCH (18:32)
[2021-04-20] MEDS: MULTIVITAMIN IV SCH (18:32)
[2021-04-20] MEDS: SELENIUM IV SCH (18:32)
[2021-04-20] MEDS: COPPER IV SCH (18:32)
[2021-04-20] MEDS: [UNRECOGNIZED DRUG - OTHER] IV SCH (18:32)
[2021-04-20] MEDS: ZINC IV SCH (18:32)
[2021-04-21] MEDS: LACTATED RINGERS 1,000 ML IV SCH ×3 (00:29→11:30)
[2021-04-21] MEDS: metroNIDAZOLE INJ 500 MG/100 ML PREMIX IV SCH ×3 (01:47→17:00)
[2021-04-21] MEDS: HYDROCORTISONE 100 MG VIAL IV SCH ×3 (01:47→18:37)
[2021-04-21] MEDS: fentaNYL INJ 1,250 MCG in SODIUM CHLORIDE 0.9% 225 ML IV PRN ×4 (02:40→23:13)
[2021-04-21 03:10] LABS: ABG HCO3 22.7 MMOL/L (20-26); ABG Oxygen Saturation 98.6 % (95-100); ABG PCO2 45.4 MM HG (35-48); ABG PH 7.331 (7.35-7.45); ABG TCO2 22.1 MMOL/L (23-27)
[2021-04-21] MEDS: HEPARIN 5,000 UNIT/1 ML VIAL SUBCUT SCH ×3 (03:45→18:38)
[2021-04-21] MEDS: CEFEPIME 1,000 MG in SODIUM CHLORIDE 0.9% 100 ML IV SCH ×3 (04:56→16:56)
[2021-04-21 05:02] LABS: Basophils # 0.1 10*3/uL (0.0-0.2); Basophils % 0.2 % (0.0-0.8); Hematocrit 32.7 VOL% (35.7-47.0); Hemoglobin 10.1 GM/DL (12.0-16.0); Immature Granulocytes % 1.9 %; Immature Granulocytes Absolute 0.45 #; Lymphocytes # 0.7 10*3/uL (1.4-4.0); Mean Corpuscular HGB Conc 30.9 GM/DL (32-36); Mean Corpuscular Volume 95.6 FL (87-102); Mean Platelet Volume 10.1 FL (9.6-12.0); Monocytes % 5.8 % (1.7-12.7); Neutrophils % 89.1 % (38.7-73.9); Platelet Count 300 T/CUMM (130-400); Red Blood Count 3.42 MC/CUMM (3.8-5.5); Red Cell Distribution Width 15.3 % (9.3-17.3); White Blood Count 23.2 T/CUMM (4-12)
[2021-04-21 05:20] LABS: Calcium 7.8 MG/DL (8.5-10.1); Osmolality,Calculated 278.8 MOS/KG (273-304); Potassium 4.3 MMOL/L (3.5-5.1)
[2021-04-21 05:25] LABS: Band Neutrophils 3 % (0-10); Lymphocytes 4 % (20-55); Segmented Neutrophils 91 % (50-85); Total Cells Counted 100
[2021-04-21 05:27] LABS: Hypochromasia Slight; Microcytosis 1+; Platelet Estimate Normal
[2021-04-21] MEDS ORDERED: POTASSIUM PHOSPHATE 40 MMOL in SODIUM CHLORIDE 0.9% 250 ML IV ONE (09:00)
[2021-04-21] MEDS: PANTOPRAZOLE 40 MG VIAL IV SCH (09:35)
[2021-04-21] MEDS: METOPROLOL TARTRATE 5 MG/5 ML VIAL IV SCH ×2 (13:17→17:02)
[2021-04-21] MEDS: ELECTROLYTE IV SCH (17:08)
[2021-04-21] MEDS: [UNRECOGNIZED DRUG - OTHER] IV SCH (17:08)
[2021-04-21] MEDS: SELENIUM IV SCH (17:08)
[2021-04-21] MEDS: ZINC IV SCH (17:08)
[2021-04-21] MEDS: MANGANESE IV SCH (17:08)
[2021-04-21] MEDS: COPPER IV SCH (17:08)
[2021-04-22] MEDS: METOPROLOL TARTRATE 5 MG/5 ML VIAL IV SCH ×5 (00:42→23:46)
[2021-04-22] MEDS: CEFEPIME 1,000 MG in SODIUM CHLORIDE 0.9% 100 ML IV SCH ×5 (00:43→23:46)
[2021-04-22] MEDS ORDERED: SODIUM HYPOCHLORITE 0.25% IRRIG 473 ML BOTTLE TOP PRN (03:12)
[2021-04-22] MEDS: metroNIDAZOLE INJ 500 MG/100 ML PREMIX IV SCH ×3 (03:15→18:03)
[2021-04-22] MEDS: HEPARIN 5,000 UNIT/1 ML VIAL SUBCUT SCH ×3 (03:15→18:03)
[2021-04-22] MEDS: HYDROCORTISONE 100 MG VIAL IV SCH ×3 (03:16→18:03)
[2021-04-22 03:51] LABS: ABG Base Excess -0.6 MMOL/L (-2.5-2.5); ABG Oxygen Saturation 99.4 % (95-100); ABG PCO2 42.6 MM HG (35-48); ABG PH 7.373 (7.35-7.45); ABG TCO2 21.7 MMOL/L (23-27)
[2021-04-22] MEDS: fentaNYL INJ 1,250 MCG in SODIUM CHLORIDE 0.9% 225 ML IV PRN ×4 (05:16→22:10)
[2021-04-22 06:08] LABS: Basophils % 0.1 % (0.0-0.8); Hematocrit 30.6 VOL% (35.7-47.0); Hemoglobin 9.6 GM/DL (12.0-16.0); Immature Granulocytes % 8.7 %; Immature Granulocytes Absolute 1.72 #; Lymphocytes # 1.4 10*3/uL (1.4-4.0); Lymphocytes % 7.1 % (21.3-54.2); Mean Corpuscular HGB Conc 31.4 GM/DL (32-36); Mean Corpuscular Volume 93.6 FL (87-102); Mean Platelet Volume 9.9 FL (9.6-12.0); Monocytes % 10.3 % (1.7-12.7); Neutrophils % 73.8 % (38.7-73.9); Platelet Count 331 T/CUMM (130-400); Red Blood Count 3.27 MC/CUMM (3.8-5.5); Red Cell Distribution Width 15.3 % (9.3-17.3); White Blood Count 19.8 T/CUMM (4-12)
[2021-04-22 06:26] LABS: Calcium 7.8 MG/DL (8.5-10.1); Potassium 3.9 MMOL/L (3.5-5.1)
[2021-04-22 06:29] LABS: Band Neutrophils 1 % (0-10); Hypochromasia 1+; Lymphocytes 8 % (20-55); Microcytosis 1+; Platelet Estimate Adequate; Segmented Neutrophils 82 % (50-85); Total Cells Counted 100
[2021-04-22] MEDS: PANTOPRAZOLE 40 MG VIAL IV SCH (08:03)
[2021-04-22] MEDS ORDERED: POTASSIUM CHLORIDE INJ 30 MEQ in SODIUM CHLORIDE 0.9% 1,000 ML IV SCH (10:30)
[2021-04-22] MEDS ORDERED: POTASSIUM PHOSPHATE 30 MMOL in SODIUM CHLORIDE 0.9% 250 ML IV ONE (13:00)
[2021-04-22] MEDS: SELENIUM IV SCH (17:34)
[2021-04-22] MEDS: MULTIVITAMIN IV SCH (17:34)
[2021-04-22] MEDS: COPPER IV SCH (17:34)
[2021-04-22] MEDS: [UNRECOGNIZED DRUG - OTHER] IV SCH (17:34)
[2021-04-22] MEDS: MANGANESE IV SCH (17:34)
[2021-04-22] MEDS: ZINC IV SCH (17:34)
[2021-04-22] MEDS: LACTATED RINGERS 1,000 ML IV SCH ×2 (20:46→23:46)
[2021-04-23] MEDS: fentaNYL INJ 1,250 MCG in SODIUM CHLORIDE 0.9% 225 ML IV PRN ×4 (03:20→21:52)
[2021-04-23] MEDS: metroNIDAZOLE INJ 500 MG/100 ML PREMIX IV SCH ×3 (03:23→18:00)
[2021-04-23] MEDS: HEPARIN 5,000 UNIT/1 ML VIAL SUBCUT SCH ×3 (03:24→18:00)
[2021-04-23] MEDS: HYDROCORTISONE 100 MG VIAL IV SCH ×3 (03:24→18:00)
[2021-04-23 04:45] LABS: ABG Base Excess -0.6 MMOL/L (-2.5-2.5); ABG HCO3 23.7 MMOL/L (20-26); ABG Oxygen Saturation 98.7 % (95-100); ABG PCO2 37.7 MM HG (35-48); ABG PH 7.416 (7.35-7.45); ABG PO2 154.8 MM HG (80-95); ABG TCO2 24.8 MMOL/L (23-27); Allen Test Positive; Pt O2 Delivery Device Ventilator
[2021-04-23 05:37] LABS: Basophils % 0.1 % (0.0-0.8); Hematocrit 30.9 VOL% (35.7-47.0); Hemoglobin 9.7 GM/DL (12.0-16.0); Immature Granulocytes % 16.8 %; Immature Granulocytes Absolute 3.66 #; Lymphocytes # 2.3 10*3/uL (1.4-4.0); Lymphocytes % 10.5 % (21.3-54.2); Mean Corpuscular HGB Conc 31.4 GM/DL (32-36); Mean Corpuscular Volume 94.8 FL (87-102); Mean Platelet Volume 9.7 FL (9.6-12.0); NRBC # 0.02 10*3/uL; Neutrophils % 58.6 % (38.7-73.9); Platelet Count 406 T/CUMM (130-400); Red Blood Count 3.26 MC/CUMM (3.8-5.5); Red Cell Distribution Width 15.6 % (9.3-17.3); White Blood Count 21.8 T/CUMM (4-12)
[2021-04-23] MEDS: CEFEPIME 1,000 MG in SODIUM CHLORIDE 0.9% 100 ML IV SCH ×3 (05:41→17:04)
[2021-04-23] MEDS: METOPROLOL TARTRATE 5 MG/5 ML VIAL IV SCH ×3 (05:41→17:19)
[2021-04-23 05:56] LABS: Band Neutrophils 1 % (0-10); Hypochromasia Slight; Lymphocytes 8 % (20-55); Microcytosis Slight; Platelet Estimate Adequate; Segmented Neutrophils 77 % (50-85); Total Cells Counted 100
[2021-04-23 06:09] LABS: Calcium 7.5 MG/DL (8.5-10.1); Osmolality,Calculated 292.8 MOS/KG (273-304); Potassium 3.9 MMOL/L (3.5-5.1)
[2021-04-23] MEDS: PANTOPRAZOLE 40 MG VIAL IV SCH (08:13)
[2021-04-23] MEDS: LACTATED RINGERS 1,000 ML IV SCH (09:44)
[2021-04-23] MEDS ORDERED: POTASSIUM PHOSPHATE 30 MMOL in SODIUM CHLORIDE 0.9% 250 ML IV ONE (10:00)
[2021-04-23] MEDS: FLUCONAZOLE INJ 200 MG/100 ML PREMIX IV SCH (12:05)
[2021-04-23] MEDS: ZINC IV SCH ×2 (16:59→23:53)
[2021-04-23] MEDS: MANGANESE IV SCH ×2 (16:59→23:53)
[2021-04-23] MEDS: SELENIUM IV SCH ×2 (16:59→23:53)
[2021-04-23] MEDS: [UNRECOGNIZED DRUG - OTHER] IV SCH (16:59)
[2021-04-23] MEDS: ELECTROLYTE IV SCH ×2 (16:59→23:53)
[2021-04-23] MEDS: COPPER IV SCH ×2 (16:59→23:53)
[2021-04-23] MEDS: [UNRECOGNIZED DRUG - OTHER] IV SCH (23:53)
[2021-04-24] MEDS: CEFEPIME 1,000 MG in SODIUM CHLORIDE 0.9% 100 ML IV SCH ×5 (00:24→23:36)
[2021-04-24] MEDS: METOPROLOL TARTRATE 5 MG/5 ML VIAL IV SCH ×5 (00:26→23:36)
[2021-04-24] MEDS: HYDROCORTISONE 100 MG VIAL IV SCH ×3 (02:35→17:45)
[2021-04-24] MEDS: HEPARIN 5,000 UNIT/1 ML VIAL SUBCUT SCH ×3 (02:35→17:45)
[2021-04-24] MEDS: metroNIDAZOLE INJ 500 MG/100 ML PREMIX IV SCH ×3 (02:38→17:45)
[2021-04-24] MEDS: fentaNYL INJ 1,250 MCG in SODIUM CHLORIDE 0.9% 225 ML IV PRN ×4 (03:33→21:09)
[2021-04-24 04:02] LABS: ABG Base Excess 0.2 MMOL/L (-2.5-2.5); ABG HCO3 24.6 MMOL/L (20-26); ABG Oxygen Saturation 98.7 % (95-100); ABG PCO2 37.9 MM HG (35-48); ABG PH 7.419 (7.35-7.45); ABG TCO2 21.8 MMOL/L (23-27)
[2021-04-24 04:29] LABS: Basophils # 0.2 10*3/uL (0.0-0.2); Basophils % 0.8 % (0.0-0.8); Hematocrit 29.1 VOL% (35.7-47.0); Hemoglobin 9.2 GM/DL (12.0-16.0); Immature Granulocytes % 19.8 %; Lymphocytes # 3.2 10*3/uL (1.4-4.0); Lymphocytes % 13.1 % (21.3-54.2); Mean Corpuscular HGB Conc 31.6 GM/DL (32-36); Mean Corpuscular Volume 92.7 FL (87-102); Mean Platelet Volume 9.4 FL (9.6-12.0); Monocytes % 10.1 % (1.7-12.7); NRBC # 0.04 10*3/uL; Neutrophils % 56.2 % (38.7-73.9); Platelet Count 432 T/CUMM (130-400); Red Blood Count 3.14 MC/CUMM (3.8-5.5); Red Cell Distribution Width 15.3 % (9.3-17.3); White Blood Count 24.3 T/CUMM (4-12)
[2021-04-24 04:35] LABS: PT Patient Result 11.2 SECS (10.5-12.0); Partial Thromboplastin Time 27.8 SECS (23.9-33.8)
[2021-04-24 04:47] LABS: Calcium 7.7 MG/DL (8.5-10.1); Osmolality,Calculated 293.8 MOS/KG (273-304); Potassium 3.8 MMOL/L (3.5-5.1)
[2021-04-24 05:36] LABS: Band Neutrophils 7 % (0-10); Lymphocytes 21 % (20-55); Metamyelocytes 5 %; Myelocytes 2 %; Nucleated Red Blood Cells 2 (0-5); Platelet Estimate Normal; Segmented Neutrophils 58 % (50-85); Total Cells Counted 100
[2021-04-24 05:37] LABS: Anisocytosis 1+; Macrocytosis Slight; Smudge Cells Few
[2021-04-24 05:38] LABS: Atypical Lymphocytes Few; Reactive Lymphocytes Slight
[2021-04-24] MEDS: ELECTROLYTE IV SCH (07:50)
[2021-04-24] MEDS: MANGANESE IV SCH ×2 (07:50→16:40)
[2021-04-24] MEDS: [UNRECOGNIZED DRUG - OTHER] IV SCH (07:50)
[2021-04-24] MEDS: SELENIUM IV SCH ×2 (07:50→16:40)
[2021-04-24] MEDS: COPPER IV SCH ×2 (07:50→16:40)
[2021-04-24] MEDS: ZINC IV SCH ×2 (07:50→16:40)
[2021-04-24] MEDS: PANTOPRAZOLE 40 MG VIAL IV SCH (09:50)
[2021-04-24] MEDS: FLUCONAZOLE INJ 200 MG/100 ML PREMIX IV SCH (10:50)
[2021-04-24] MEDS: LACTATED RINGERS 1,000 ML IV SCH (16:10)
[2021-04-24] MEDS: [UNRECOGNIZED DRUG - OTHER] IV SCH (16:40)
[2021-04-24] MEDS: MULTIVITAMIN IV SCH (16:40)
[2021-04-25] MEDS: HEPARIN 5,000 UNIT/1 ML VIAL SUBCUT SCH ×3 (03:12→17:30)
[2021-04-25] MEDS: metroNIDAZOLE INJ 500 MG/100 ML PREMIX IV SCH ×3 (03:12→17:30)
[2021-04-25] MEDS: fentaNYL INJ 1,250 MCG in SODIUM CHLORIDE 0.9% 225 ML IV PRN ×4 (03:13→21:01)
[2021-04-25] MEDS: HYDROCORTISONE 100 MG VIAL IV SCH ×3 (03:13→17:30)
[2021-04-25 03:50] LABS: Basophils # 0.1 10*3/uL (0.0-0.2); Basophils % 0.4 % (0.0-0.8); Hematocrit 27.3 VOL% (35.7-47.0); Hemoglobin 8.5 GM/DL (12.0-16.0); Immature Granulocytes % 18.8 %; Immature Granulocytes Absolute 4.41 #; Lymphocytes # 3.6 10*3/uL (1.4-4.0); Lymphocytes % 15.1 % (21.3-54.2); Mean Corpuscular HGB Conc 31.1 GM/DL (32-36); Mean Corpuscular Volume 94.5 FL (87-102); Mean Platelet Volume 9.2 FL (9.6-12.0); Monocytes % 8.9 % (1.7-12.7); NRBC # 0.04 10*3/uL; Neutrophils % 56.8 % (38.7-73.9); Platelet Count 488 T/CUMM (130-400); Red Blood Count 2.89 MC/CUMM (3.8-5.5); Red Cell Distribution Width 15.1 % (9.3-17.3); White Blood Count 23.5 T/CUMM (4-12)
[2021-04-25 04:24] LABS: Band Neutrophils 6 % (0-10); Hypochromasia 1+; Lymphocytes 17 % (20-55); Microcytosis 1+; Platelet Estimate Adequate; Segmented Neutrophils 71 % (50-85); Total Cells Counted 100
[2021-04-25 04:29] LABS: Calcium 7.9 MG/DL (8.5-10.1); Osmolality,Calculated 294.8 MOS/KG (273-304); Potassium 3.8 MMOL/L (3.5-5.1)
[2021-04-25 04:33] LABS: Allen Test Positive; Pt O2 Delivery Device Ventilator
[2021-04-25 04:34] LABS: ABG Base Excess -0.3 MMOL/L (-2.5-2.5); ABG HCO3 24.2 MMOL/L (20-26); ABG Oxygen Saturation 98.7 % (95-100); ABG PCO2 37.8 MM HG (35-48); ABG PH 7.412 (7.35-7.45); ABG TCO2 22.3 MMOL/L (23-27)
[2021-04-25] MEDS: CEFEPIME 1,000 MG in SODIUM CHLORIDE 0.9% 100 ML IV SCH ×4 (06:08→23:58)
[2021-04-25] MEDS: METOPROLOL TARTRATE 5 MG/5 ML VIAL IV SCH ×2 (06:08→12:40)
[2021-04-25] MEDS: PANTOPRAZOLE 40 MG VIAL IV SCH (08:30)
[2021-04-25] MEDS: HYDROmorphone 2 MG/1 ML VIAL IV PRN (10:00)
[2021-04-25] MEDS: FLUCONAZOLE INJ 200 MG/100 ML PREMIX IV SCH (10:30)
[2021-04-25] MEDS: ELECTROLYTE IV SCH (17:10)
[2021-04-25] MEDS: SELENIUM IV SCH (17:10)
[2021-04-25] MEDS: COPPER IV SCH (17:10)
[2021-04-25] MEDS: ZINC IV SCH (17:10)
[2021-04-25] MEDS: [UNRECOGNIZED DRUG - OTHER] IV SCH (17:10)
[2021-04-25] MEDS: MANGANESE IV SCH (17:10)
[2021-04-25] MEDS: cloNIDine 0.3 MG/24 HR PATCH TRANSDERM SCH (17:45)
[2021-04-25] MEDS: METOPROLOL TARTRATE 100 MG TABLET PER TUBE SCH (21:03)
[2021-04-25] MEDS: LACTATED RINGERS 1,000 ML IV SCH (21:08)
[2021-04-26 03:34] LABS: ABG Base Excess -0.1 MMOL/L (-2.5-2.5); ABG HCO3 24.4 MMOL/L (20-26); ABG Oxygen Saturation 97.9 % (95-100); ABG PCO2 40.4 MM HG (35-48); ABG PH 7.394 (7.35-7.45); ABG TCO2 22.8 MMOL/L (23-27)
[2021-04-26] MEDS: metroNIDAZOLE INJ 500 MG/100 ML PREMIX IV SCH ×3 (03:35→18:08)
[2021-04-26] MEDS: HYDROCORTISONE 100 MG VIAL IV SCH ×3 (03:35→18:11)
[2021-04-26] MEDS: HEPARIN 5,000 UNIT/1 ML VIAL SUBCUT SCH ×3 (03:35→18:08)
[2021-04-26] MEDS: fentaNYL INJ 1,250 MCG in SODIUM CHLORIDE 0.9% 225 ML IV PRN ×4 (03:40→23:26)
[2021-04-26 04:06] LABS: Basophils # 0.1 10*3/uL (0.0-0.2); Basophils % 0.4 % (0.0-0.8); Hematocrit 27.8 VOL% (35.7-47.0); Hemoglobin 8.5 GM/DL (12.0-16.0); Immature Granulocytes % 12.8 %; Immature Granulocytes Absolute 2.65 #; Lymphocytes % 14.4 % (21.3-54.2); Mean Corpuscular HGB Conc 30.6 GM/DL (32-36); Mean Corpuscular Volume 94.6 FL (87-102); Mean Platelet Volume 9.1 FL (9.6-12.0); Monocytes % 7.4 % (1.7-12.7); NRBC # 0.04 10*3/uL; Platelet Count 570 T/CUMM (130-400); Red Blood Count 2.94 MC/CUMM (3.8-5.5); White Blood Count 20.7 T/CUMM (4-12)
[2021-04-26 04:19] LABS: Calcium 7.9 MG/DL (8.5-10.1); Osmolality,Calculated 293.8 MOS/KG (273-304); Potassium 3.7 MMOL/L (3.5-5.1)
[2021-04-26 04:25] LABS: Band Neutrophils 2 % (0-10); Hypochromasia 1+; Lymphocytes 19 % (20-55); Microcytosis 1+; Platelet Estimate Increased; Segmented Neutrophils 69 % (50-85); Total Cells Counted 100
[2021-04-26] MEDS: CEFEPIME 1,000 MG in SODIUM CHLORIDE 0.9% 100 ML IV SCH ×4 (06:21→23:29)
[2021-04-26] MEDS: METOPROLOL TARTRATE 100 MG TABLET PER TUBE SCH ×2 (08:22→20:16)
[2021-04-26] MEDS: PANTOPRAZOLE 40 MG VIAL IV SCH (08:26)
[2021-04-26] MEDS: LACTATED RINGERS 1,000 ML IV SCH (10:05)
[2021-04-26] MEDS: FUROSEMIDE 40 MG/4 ML VIAL IV SCH (10:51)
[2021-04-26] MEDS: FLUCONAZOLE INJ 200 MG/100 ML PREMIX IV SCH (11:59)
[2021-04-26] MEDS: ZINC IV SCH (17:22)
[2021-04-26] MEDS: [UNRECOGNIZED DRUG - OTHER] IV SCH (17:22)
[2021-04-26] MEDS: COPPER IV SCH (17:22)
[2021-04-26] MEDS: MANGANESE IV SCH (17:22)
[2021-04-26] MEDS: ELECTROLYTE IV SCH (17:22)
[2021-04-26] MEDS: SELENIUM IV SCH (17:22)
[2021-04-26] MEDS: ACETAMINOPHEN 325 MG TABLET PO PRN (18:16)
[2021-04-27 03:08] LABS: Allen Test Positive; Pt O2 Delivery Device Ventilator
[2021-04-27 03:09] LABS: ABG HCO3 25.3 MMOL/L (20-26); ABG Oxygen Saturation 99.4 % (95-100); ABG PCO2 39.6 MM HG (35-48); ABG PH 7.417 (7.35-7.45); ABG TCO2 23.8 MMOL/L (23-27)
[2021-04-27] MEDS: metroNIDAZOLE INJ 500 MG/100 ML PREMIX IV SCH ×3 (03:22→18:18)
[2021-04-27] MEDS: HYDROCORTISONE 100 MG VIAL IV SCH ×3 (03:22→18:15)
[2021-04-27] MEDS: HEPARIN 5,000 UNIT/1 ML VIAL SUBCUT SCH ×3 (03:22→18:18)
[2021-04-27 04:05] LABS: Basophils % 0.2 % (0.0-0.8); Hematocrit 25.6 VOL% (35.7-47.0); Hemoglobin 7.7 GM/DL (12.0-16.0); Immature Granulocytes % 7.5 %; Immature Granulocytes Absolute 1.34 #; Lymphocytes # 2.5 10*3/uL (1.4-4.0); Lymphocytes % 14.1 % (21.3-54.2); Mean Corpuscular HGB Conc 30.1 GM/DL (32-36); Mean Corpuscular Volume 95.2 FL (87-102); Mean Platelet Volume 9.8 FL (9.6-12.0); Monocytes % 7.1 % (1.7-12.7); Neutrophils % 71.1 % (38.7-73.9); Platelet Count 646 T/CUMM (130-400); Red Blood Count 2.69 MC/CUMM (3.8-5.5); Red Cell Distribution Width 14.9 % (9.3-17.3); White Blood Count 17.8 T/CUMM (4-12)
[2021-04-27 04:30] LABS: Band Neutrophils 3 % (0-10); Calcium 7.5 MG/DL (8.5-10.1); Lymphocytes 12 % (20-55); Nucleated Red Blood Cells 1 (0-5); Osmolality,Calculated 297.7 MOS/KG (273-304); Potassium 3.5 MMOL/L (3.5-5.1); Segmented Neutrophils 82 % (50-85); Total Cells Counted 100
[2021-04-27 04:31] LABS: Hypochromasia Slight; Platelet Estimate Increased
[2021-04-27] MEDS: fentaNYL INJ 1,250 MCG in SODIUM CHLORIDE 0.9% 225 ML IV PRN ×3 (05:25→19:03)
[2021-04-27] MEDS: CEFEPIME 1,000 MG in SODIUM CHLORIDE 0.9% 100 ML IV SCH ×4 (05:25→23:12)
[2021-04-27] MEDS: LACTATED RINGERS 1,000 ML IV SCH ×2 (05:26→08:54)
[2021-04-27] MEDS: PANTOPRAZOLE 40 MG VIAL IV SCH (08:38)
[2021-04-27] MEDS: FUROSEMIDE 40 MG/4 ML VIAL IV SCH (08:41)
[2021-04-27] MEDS: METOPROLOL TARTRATE 100 MG TABLET PER TUBE SCH ×2 (08:43→20:27)
[2021-04-27] MEDS ORDERED: FUROSEMIDE 40 MG/4 ML VIAL IV SCH (09:30)
[2021-04-27] MEDS: FLUCONAZOLE INJ 200 MG/100 ML PREMIX IV SCH (10:28)
[2021-04-27] MEDS: ACETAMINOPHEN 325 MG TABLET PO PRN (11:04)
[2021-04-27] MEDS: INSULIN LISPRO 100 UNIT/ML SUBCUT SCH ×3 (12:29→23:13)
[2021-04-27] MEDS: DEXMEDETOMIDINE 200 MCG in SODIUM CHLORIDE 0.9% 48 ML IV PRN ×3 (13:26→23:01)
[2021-04-27] MEDS ORDERED: LORazepam 2 MG/1 ML VIAL ONE (14:11)
[2021-04-27] MEDS: LORazepam 2 MG/1 ML VIAL IV PRN (14:23)
[2021-04-28] MEDS: fentaNYL INJ 1,250 MCG in SODIUM CHLORIDE 0.9% 225 ML IV PRN ×4 (00:40→19:26)
[2021-04-28] MEDS: metroNIDAZOLE INJ 500 MG/100 ML PREMIX IV SCH (02:22)
[2021-04-28] MEDS: HYDROCORTISONE 100 MG VIAL IV SCH ×3 (02:22→18:35)
[2021-04-28] MEDS: HEPARIN 5,000 UNIT/1 ML VIAL SUBCUT SCH ×3 (02:23→18:31)
[2021-04-28 04:26] LABS: Basophils % 0.2 % (0.0-0.8); Hematocrit 26.1 VOL% (35.7-47.0); Hemoglobin 8.1 GM/DL (12.0-16.0); Immature Granulocytes % 5.9 %; Lymphocytes # 1.9 10*3/uL (1.4-4.0); Lymphocytes % 10.1 % (21.3-54.2); Mean Corpuscular Volume 94.2 FL (87-102); Mean Platelet Volume 9.7 FL (9.6-12.0); Neutrophils % 76.8 % (38.7-73.9); Platelet Count 703 T/CUMM (130-400); Red Blood Count 2.77 MC/CUMM (3.8-5.5); Red Cell Distribution Width 14.5 % (9.3-17.3); White Blood Count 18.6 T/CUMM (4-12)
[2021-04-28 04:42] LABS: ABG Base Excess 1.2 MMOL/L (-2.5-2.5); ABG HCO3 25.2 MMOL/L (20-26); ABG Oxygen Saturation 97.5 % (95-100); ABG PCO2 37.2 MM HG (35-48); ABG PH 7.449 (7.35-7.45); ABG PO2 103.7 MM HG (80-95); ABG TCO2 26.4 MMOL/L (23-27); Allen Test Positive; Pt O2 Delivery Device Ventilator
[2021-04-28 04:45] LABS: Hypochromasia 1+; Lymphocytes 8 % (20-55); Microcytosis 1+; Nucleated Red Blood Cells 1 (0-5); Platelet Estimate Increased; Segmented Neutrophils 83 % (50-85); Total Cells Counted 100
[2021-04-28 04:53] LABS: Calcium 7.7 MG/DL (8.5-10.1); Osmolality,Calculated 296.8 MOS/KG (273-304); Potassium 3.2 MMOL/L (3.5-5.1)
[2021-04-28] MEDS: CEFEPIME 1,000 MG in SODIUM CHLORIDE 0.9% 100 ML IV SCH (05:12)
[2021-04-28] MEDS: INSULIN LISPRO 100 UNIT/ML SUBCUT SCH ×3 (05:13→18:30)
[2021-04-28] MEDS: DEXMEDETOMIDINE 200 MCG in SODIUM CHLORIDE 0.9% 48 ML IV PRN ×4 (05:15→19:25)
[2021-04-28] MEDS: METOPROLOL TARTRATE 100 MG TABLET PER TUBE SCH ×2 (08:56→20:40)
[2021-04-28] MEDS: ACETAMINOPHEN 325 MG TABLET PO PRN (08:56)
[2021-04-28] MEDS: FUROSEMIDE 40 MG/4 ML VIAL IV SCH (08:57)
[2021-04-28] MEDS ORDERED: POTASSIUM CHLORIDE 20 MEQ/15 ML UDCUP PER TUBE ONE (09:00)
[2021-04-28] MEDS: PANTOPRAZOLE 40 MG VIAL IV SCH (09:19)
[2021-04-28] MEDS: FLUCONAZOLE INJ 200 MG/100 ML PREMIX IV SCH (10:15)
[2021-04-28] MEDS ORDERED: fentaNYL 100 MCG/2 ML VIAL IV ONE (13:01)
[2021-04-28] MEDS: LORazepam 2 MG/1 ML VIAL IV PRN (15:17)
[2021-04-29] MEDS: DEXMEDETOMIDINE 200 MCG in SODIUM CHLORIDE 0.9% 48 ML IV PRN ×5 (00:07→20:10)
[2021-04-29] MEDS: INSULIN LISPRO 100 UNIT/ML SUBCUT SCH ×4 (00:11→18:26)
[2021-04-29] MEDS: fentaNYL INJ 1,250 MCG in SODIUM CHLORIDE 0.9% 225 ML IV PRN ×5 (01:15→21:42)
[2021-04-29] MEDS: HYDROCORTISONE 100 MG VIAL IV SCH ×3 (03:02→18:32)
[2021-04-29] MEDS: HEPARIN 5,000 UNIT/1 ML VIAL SUBCUT SCH ×3 (03:03→18:31)
[2021-04-29 04:46] LABS: Allen Test Positive; Pt O2 Delivery Device Ventilator
[2021-04-29 04:48] LABS: ABG Base Excess 4.1 MMOL/L (-2.5-2.5); ABG HCO3 28.1 MMOL/L (20-26); ABG Oxygen Saturation 96.9 % (95-100); ABG PCO2 37.2 MM HG (35-48); ABG PH 7.481 (7.35-7.45); ABG PO2 82.2 MM HG (80-95); ABG TCO2 25.6 MMOL/L (23-27)
[2021-04-29 06:09] LABS: Basophils % 0.2 % (0.0-0.8); Hematocrit 26.4 VOL% (35.7-47.0); Hemoglobin 8.1 GM/DL (12.0-16.0); Immature Granulocytes % 3.7 %; Immature Granulocytes Absolute 0.71 #; Lymphocytes % 10.5 % (21.3-54.2); Mean Corpuscular HGB Conc 30.7 GM/DL (32-36); Mean Platelet Volume 9.8 FL (9.6-12.0); Monocytes % 7.3 % (1.7-12.7); Neutrophils % 78.3 % (38.7-73.9); Platelet Count 776 T/CUMM (130-400); Red Blood Count 2.81 MC/CUMM (3.8-5.5); Red Cell Distribution Width 14.7 % (9.3-17.3); White Blood Count 19.1 T/CUMM (4-12)
[2021-04-29 06:27] LABS: Hypochromasia 1+; Lymphocytes 14 % (20-55); Microcytosis 1+; Platelet Estimate Increased; Segmented Neutrophils 78 % (50-85); Total Cells Counted 100
[2021-04-29 08:25] LABS: PT Patient Result 11.6 SECS (10.5-12.0); Partial Thromboplastin Time 25.4 SECS (23.9-33.8)
[2021-04-29] MEDS: FUROSEMIDE 40 MG/4 ML VIAL IV SCH (10:09)
[2021-04-29] MEDS: METOPROLOL TARTRATE 100 MG TABLET PER TUBE SCH ×2 (10:09→20:50)
[2021-04-29] MEDS: PANTOPRAZOLE 40 MG VIAL IV SCH (10:11)
[2021-04-29] MEDS: MEROPENEM 500 MG in SODIUM CHLORIDE 0.9% 100 ML IV SCH ×3 (10:13→20:55)
[2021-04-29 10:21] LABS: % Iron Saturation 13.9 % (18-50); Calcium 7.9 MG/DL (8.5-10.1); Osmolality,Calculated 293.8 MOS/KG (273-304); Potassium 3.4 MMOL/L (3.5-5.1)
[2021-04-29] MEDS: FLUCONAZOLE INJ 200 MG/100 ML PREMIX IV SCH (11:04)
[2021-04-29] MEDS: POTASSIUM CHLORIDE RIDER 20 MEQ/100 ML PREMIX IV PRN (16:56)
[2021-04-29] MEDS: POTASSIUM CHLORIDE RIDER 10 MEQ/100 ML PREMIX IV PRN (18:49)
[2021-04-30] MEDS: INSULIN LISPRO 100 UNIT/ML SUBCUT SCH ×5 (00:31→23:47)
[2021-04-30] MEDS: DEXMEDETOMIDINE 200 MCG in SODIUM CHLORIDE 0.9% 48 ML IV PRN ×5 (01:00→21:45)
[2021-04-30] MEDS: fentaNYL INJ 1,250 MCG in SODIUM CHLORIDE 0.9% 225 ML IV PRN ×5 (02:18→23:45)
[2021-04-30 03:06] LABS: ABG Base Excess 5.4 MMOL/L (-2.5-2.5); ABG HCO3 28.6 MMOL/L (20-26); ABG Oxygen Saturation 97.7 % (95-100); ABG PCO2 36.3 MM HG (35-48); ABG PH 7.514 (7.35-7.45); ABG PO2 107.1 MM HG (80-95); ABG TCO2 29.7 MMOL/L (23-27); Allen Test Positive; Pt O2 Delivery Device Ventilator
[2021-04-30] MEDS: HEPARIN 5,000 UNIT/1 ML VIAL SUBCUT SCH ×3 (03:47→19:33)
[2021-04-30] MEDS: HYDROCORTISONE 100 MG VIAL IV SCH ×3 (03:48→19:00)
[2021-04-30] MEDS: MEROPENEM 500 MG in SODIUM CHLORIDE 0.9% 100 ML IV SCH ×4 (04:45→20:30)
[2021-04-30 04:52] LABS: Basophils % 0.1 % (0.0-0.8); Hematocrit 25.7 VOL% (35.7-47.0); Hemoglobin 8.1 GM/DL (12.0-16.0); Immature Granulocytes % 2.7 %; Immature Granulocytes Absolute 0.38 #; Lymphocytes # 2.5 10*3/uL (1.4-4.0); Lymphocytes % 17.4 % (21.3-54.2); Mean Corpuscular HGB Conc 31.5 GM/DL (32-36); Mean Corpuscular Volume 92.8 FL (87-102); Mean Platelet Volume 9.6 FL (9.6-12.0); Monocytes % 9.6 % (1.7-12.7); Neutrophils % 70.2 % (38.7-73.9); Platelet Count 762 T/CUMM (130-400); Red Blood Count 2.77 MC/CUMM (3.8-5.5); Red Cell Distribution Width 14.4 % (9.3-17.3); White Blood Count 14.3 T/CUMM (4-12)
[2021-04-30 05:07] LABS: Calcium 7.6 MG/DL (8.5-10.1); Osmolality,Calculated 296.7 MOS/KG (273-304); Potassium 3.1 MMOL/L (3.5-5.1)
[2021-04-30] MEDS: POTASSIUM CHLORIDE RIDER 20 MEQ/100 ML PREMIX IV PRN ×4 (06:02→23:48)
[2021-04-30] MEDS: METOPROLOL TARTRATE 100 MG TABLET PER TUBE SCH ×2 (09:27→20:30)
[2021-04-30] MEDS: FUROSEMIDE 40 MG/4 ML VIAL IV SCH ×2 (09:27→20:25)
[2021-04-30] MEDS: PANTOPRAZOLE 40 MG VIAL IV SCH (09:28)
[2021-04-30] MEDS: FERRIC GLUCONATE COMPLEX 125 MG in SODIUM CHLORIDE 0.9% 100 ML IV SCH (11:20)
[2021-04-30] MEDS: FLUCONAZOLE INJ 200 MG/100 ML PREMIX IV SCH (11:51)
[2021-05-01] MEDS: DEXMEDETOMIDINE 200 MCG in SODIUM CHLORIDE 0.9% 48 ML IV PRN (02:55)
[2021-05-01 03:14] LABS: ABG HCO3 31.8 MMOL/L (20-26); ABG Oxygen Saturation 98.5 % (95-100); ABG PCO2 40.8 MM HG (35-48); ABG PH 7.501 (7.35-7.45); ABG TCO2 29.7 MMOL/L (23-27)
[2021-05-01] MEDS: HEPARIN 5,000 UNIT/1 ML VIAL SUBCUT SCH ×3 (03:47→19:02)
[2021-05-01] MEDS: HYDROCORTISONE 100 MG VIAL IV SCH ×3 (03:48→14:30)
[2021-05-01] MEDS: MEROPENEM 500 MG in SODIUM CHLORIDE 0.9% 100 ML IV SCH ×4 (03:48→21:23)
[2021-05-01 05:53] LABS: Basophils % 0.1 % (0.0-0.8); Hematocrit 27.6 VOL% (35.7-47.0); Hemoglobin 8.6 GM/DL (12.0-16.0); Immature Granulocytes % 1.9 %; Immature Granulocytes Absolute 0.28 #; Lymphocytes % 13.6 % (21.3-54.2); Mean Corpuscular HGB Conc 31.2 GM/DL (32-36); Mean Corpuscular Volume 93.6 FL (87-102); Mean Platelet Volume 10.1 FL (9.6-12.0); Monocytes % 9.8 % (1.7-12.7); Neutrophils % 74.6 % (38.7-73.9); Platelet Count 787 T/CUMM (130-400); Red Blood Count 2.95 MC/CUMM (3.8-5.5); Red Cell Distribution Width 14.5 % (9.3-17.3); White Blood Count 14.6 T/CUMM (4-12)
[2021-05-01] MEDS: INSULIN LISPRO 100 UNIT/ML SUBCUT SCH ×4 (06:04→23:45)
[2021-05-01] MEDS: fentaNYL INJ 1,250 MCG in SODIUM CHLORIDE 0.9% 225 ML IV PRN (06:20)
[2021-05-01 07:00] LABS: Calcium 7.3 MG/DL (8.5-10.1)
[2021-05-01] MEDS: PANTOPRAZOLE 40 MG VIAL IV SCH (08:13)
[2021-05-01] MEDS: FUROSEMIDE 40 MG/4 ML VIAL IV SCH ×2 (08:13→21:25)
[2021-05-01] MEDS: METOPROLOL TARTRATE 100 MG TABLET PER TUBE SCH ×2 (08:14→21:23)
[2021-05-01] MEDS: FERRIC GLUCONATE COMPLEX 125 MG in SODIUM CHLORIDE 0.9% 100 ML IV SCH (08:14)
[2021-05-01] MEDS: ACYCLOVIR INJ 500 MG in SODIUM CHLORIDE 0.9% 100 ML IV SCH ×2 (11:00→19:02)
[2021-05-01] MEDS: FLUCONAZOLE INJ 200 MG/100 ML PREMIX IV SCH (11:02)
[2021-05-01] MEDS: ALTEPLASE 2 MG VIAL IV ONE ×2 (12:23→13:03)
[2021-05-01] MEDS: ALBUTEROL/IPRATROPIUM 3 ML NEB RESP TX SCH ×3 (15:07→23:32)
[2021-05-01] MEDS: CLORAZEPATE 3.75 MG TABLET PO PRN (19:36)
[2021-05-01] MEDS: MORPHINE 4 MG/1 ML VIAL IV PRN (19:51)
[2021-05-02] MEDS: MORPHINE 4 MG/1 ML VIAL IV PRN (01:22)
[2021-05-02] MEDS: HYDROCORTISONE 100 MG VIAL IV SCH ×2 (02:38→16:03)
[2021-05-02] MEDS: ACYCLOVIR INJ 500 MG in SODIUM CHLORIDE 0.9% 100 ML IV SCH ×3 (02:42→18:43)
[2021-05-02] MEDS: ALBUTEROL/IPRATROPIUM 3 ML NEB RESP TX SCH ×6 (03:16→23:18)
[2021-05-02] MEDS: MEROPENEM 500 MG in SODIUM CHLORIDE 0.9% 100 ML IV SCH ×4 (03:32→21:49)
[2021-05-02] MEDS: HEPARIN 5,000 UNIT/1 ML VIAL SUBCUT SCH ×3 (03:33→18:41)
[2021-05-02 05:52] LABS: Basophils % 0.1 % (0.0-0.8); Hematocrit 28.2 VOL% (35.7-47.0); Hemoglobin 8.7 GM/DL (12.0-16.0); Immature Granulocytes % 1.8 %; Lymphocytes # 1.4 10*3/uL (1.4-4.0); Lymphocytes % 8.4 % (21.3-54.2); Mean Corpuscular HGB Conc 30.9 GM/DL (32-36); Mean Platelet Volume 10.2 FL (9.6-12.0); Monocytes % 8.5 % (1.7-12.7); NRBC # 0.02 10*3/uL; Neutrophils % 81.2 % (38.7-73.9); Platelet Count 963 T/CUMM (130-400); Red Cell Distribution Width 14.3 % (9.3-17.3); White Blood Count 17.1 T/CUMM (4-12)
[2021-05-02 06:09] LABS: Alanine Aminotransferase 17 U/L (13-56); Albumin 1.7 G/DL (3.4-5.0); Alkaline Phosphatase 94 U/L (45-117); Aspartate Amino Transferase 21 U/L (0-37); Bilirubin,Total < 0.39 MG/DL (0.2-1.0); Blood Urea Nitrogen 18 MG/DL (7-18); Calcium 7.9 MG/DL (8.5-10.1); Carbon Dioxide 33 MMOL/L (21-32); Estimated Glom Filtration Rate 130 ML/MIN; Glucose 178 MG/DL (74-106); Osmolality,Calculated 286.3 MOS/KG (273-304); Potassium 2.6 MMOL/L (3.5-5.1); Sodium 141 MMOL/L (136-145); Total Protein 5.5 G/DL (6.4-8.2)
[2021-05-02] MEDS: POTASSIUM CHLORIDE RIDER 20 MEQ/100 ML PREMIX IV PRN ×2 (06:56→09:07)
[2021-05-02] MEDS: INSULIN LISPRO 100 UNIT/ML SUBCUT SCH ×3 (06:59→18:51)
[2021-05-02] MEDS ORDERED: MAGNESIUM SULF RIDER 2 GM/50 ML PREMIX IV PRN (07:03)
[2021-05-02] MEDS ORDERED: MAGNESIUM SULF RIDER 4 GM/100 ML PREMIX IV PRN (07:03)
[2021-05-02] MEDS: METOPROLOL TARTRATE 100 MG TABLET PER TUBE SCH ×2 (08:18→21:51)
[2021-05-02] MEDS: PANTOPRAZOLE 40 MG VIAL IV SCH (08:19)
[2021-05-02] MEDS: FUROSEMIDE 40 MG/4 ML VIAL IV SCH ×2 (08:20→21:51)
[2021-05-02] MEDS: FERRIC GLUCONATE COMPLEX 125 MG in SODIUM CHLORIDE 0.9% 100 ML IV SCH (08:20)
[2021-05-02] MEDS: FLUCONAZOLE INJ 200 MG/100 ML PREMIX IV SCH ×2 (09:04→11:34)
[2021-05-02] MEDS: amLODIPine 10 MG TABLET PO SCH (09:34)
[2021-05-02] MEDS: PREGABALIN 50 MG CAPSULE PO SCH (09:34)
[2021-05-02] MEDS: ESTRADIOL 2 MG TABLET PO SCH ×2 (10:35→10:36)
[2021-05-02] MEDS: POTASSIUM CHLORIDE RIDER 10 MEQ/100 ML PREMIX IV PRN ×5 (10:48→21:50)
[2021-05-02] MEDS ORDERED: POTASSIUM PHOSPHATE 30 MMOL in SODIUM CHLORIDE 0.9% 250 ML IV ONE (15:00)
[2021-05-02] MEDS: cloNIDine 0.3 MG/24 HR PATCH TRANSDERM SCH (18:59)
[2021-05-02] MEDS: ACETAMINOPHEN 325 MG TABLET PO PRN (21:51)
[2021-05-02] MEDS: CLORAZEPATE 3.75 MG TABLET PO PRN (21:51)
[2021-05-03] MEDS: INSULIN LISPRO 100 UNIT/ML SUBCUT SCH ×5 (00:41→23:58)
[2021-05-03] MEDS: ACYCLOVIR INJ 500 MG in SODIUM CHLORIDE 0.9% 100 ML IV SCH ×3 (01:25→17:54)
[2021-05-03] MEDS: HYDROCORTISONE 100 MG VIAL IV SCH ×2 (01:30→15:04)
[2021-05-03] MEDS: POTASSIUM CHLORIDE RIDER 10 MEQ/100 ML PREMIX IV PRN ×6 (02:39→17:13)
[2021-05-03] MEDS: MEROPENEM 500 MG in SODIUM CHLORIDE 0.9% 100 ML IV SCH ×4 (02:40→22:18)
[2021-05-03] MEDS: HEPARIN 5,000 UNIT/1 ML VIAL SUBCUT SCH ×3 (02:48→18:02)
[2021-05-03] MEDS: ALBUTEROL/IPRATROPIUM 3 ML NEB RESP TX SCH ×6 (03:10→22:56)
[2021-05-03] MEDS: ACETAMINOPHEN 325 MG TABLET PO PRN ×2 (05:20→22:19)
[2021-05-03 06:05] LABS: Basophils % 0.1 % (0.0-0.8); Hematocrit 28.3 VOL% (35.7-47.0); Hemoglobin 8.6 GM/DL (12.0-16.0); Immature Granulocytes % 2.1 %; Immature Granulocytes Absolute 0.28 #; Lymphocytes # 2.1 10*3/uL (1.4-4.0); Lymphocytes % 15.6 % (21.3-54.2); Mean Corpuscular HGB Conc 30.4 GM/DL (32-36); Mean Corpuscular Volume 94.3 FL (87-102); Mean Platelet Volume 10.4 FL (9.6-12.0); Monocytes % 8.3 % (1.7-12.7); NRBC # 0.05 10*3/uL; Neutrophils % 73.9 % (38.7-73.9); Platelet Count 985 T/CUMM (130-400); Red Cell Distribution Width 14.6 % (9.3-17.3); White Blood Count 13.4 T/CUMM (4-12)
[2021-05-03 06:21] LABS: Calcium 7.6 MG/DL (8.5-10.1); Osmolality,Calculated 285.1 MOS/KG (273-304)
[2021-05-03 06:27] LABS: Albumin 1.8 G/DL (3.4-5.0); Bilirubin,Total 0.4 MG/DL (0.2-1.0); Calcium 7.7 MG/DL (8.5-10.1); Osmolality,Calculated 285.1 MOS/KG (273-304); Total Protein 5.5 G/DL (6.4-8.2)
[2021-05-03] MEDS: FUROSEMIDE 40 MG/4 ML VIAL IV SCH ×2 (09:38→22:19)
[2021-05-03] MEDS: PREGABALIN 50 MG CAPSULE PO SCH (09:44)
[2021-05-03] MEDS: amLODIPine 10 MG TABLET PO SCH (09:44)
[2021-05-03] MEDS: METOPROLOL TARTRATE 100 MG TABLET PER TUBE SCH ×2 (09:44→22:19)
[2021-05-03] MEDS: PANTOPRAZOLE 40 MG VIAL IV SCH (09:46)
[2021-05-03] MEDS: ESTRADIOL 2 MG TABLET PO SCH (09:51)
[2021-05-03] MEDS: FERRIC GLUCONATE COMPLEX 125 MG in SODIUM CHLORIDE 0.9% 100 ML IV SCH (09:51)
[2021-05-03] MEDS: FLUCONAZOLE INJ 200 MG/100 ML PREMIX IV SCH (11:43)
[2021-05-03] MEDS: POTASSIUM CHLORIDE RIDER 20 MEQ/100 ML PREMIX IV PRN ×3 (12:10→22:17)
[2021-05-03] MEDS: CLORAZEPATE 3.75 MG TABLET PO PRN (22:18)
[2021-05-04] MEDS: MORPHINE 4 MG/1 ML VIAL IV PRN ×3 (00:13→13:03)
[2021-05-04] MEDS: POTASSIUM CHLORIDE RIDER 20 MEQ/100 ML PREMIX IV PRN ×3 (00:15→15:21)
[2021-05-04] MEDS: ACYCLOVIR INJ 500 MG in SODIUM CHLORIDE 0.9% 100 ML IV SCH ×3 (02:15→17:57)
[2021-05-04] MEDS: HYDROCORTISONE 100 MG VIAL IV SCH ×2 (03:15→14:14)
[2021-05-04] MEDS: HEPARIN 5,000 UNIT/1 ML VIAL SUBCUT SCH ×3 (03:16→21:03)
[2021-05-04] MEDS: MEROPENEM 500 MG in SODIUM CHLORIDE 0.9% 100 ML IV SCH ×5 (03:16→20:56)
[2021-05-04] MEDS: ALBUTEROL/IPRATROPIUM 3 ML NEB RESP TX SCH ×6 (03:45→23:42)
[2021-05-04 05:24] LABS: Basophils % 0.2 % (0.0-0.8); Hematocrit 28.1 VOL% (35.7-47.0); Hemoglobin 8.6 GM/DL (12.0-16.0); Immature Granulocytes % 3.5 %; Lymphocytes # 2.8 10*3/uL (1.4-4.0); Lymphocytes % 19.4 % (21.3-54.2); Mean Corpuscular HGB Conc 30.6 GM/DL (32-36); Mean Corpuscular Volume 95.3 FL (87-102); Mean Platelet Volume 10.3 FL (9.6-12.0); Monocytes % 7.5 % (1.7-12.7); NRBC # 0.09 10*3/uL; Neutrophils % 69.4 % (38.7-73.9); Platelet Count 960 T/CUMM (130-400); Red Blood Count 2.95 MC/CUMM (3.8-5.5); Red Cell Distribution Width 14.9 % (9.3-17.3); White Blood Count 14.4 T/CUMM (4-12)
[2021-05-04 05:57] LABS: Albumin 1.8 G/DL (3.4-5.0); Bilirubin,Total 0.4 MG/DL (0.2-1.0); Calcium 8.2 MG/DL (8.5-10.1); Osmolality,Calculated 277.5 MOS/KG (273-304); Potassium 3.3 MMOL/L (3.5-5.1); Total Protein 5.6 G/DL (6.4-8.2)
[2021-05-04] MEDS: INSULIN LISPRO 100 UNIT/ML SUBCUT SCH ×3 (06:41→17:57)
[2021-05-04] MEDS: FERRIC GLUCONATE COMPLEX 125 MG in SODIUM CHLORIDE 0.9% 100 ML IV SCH ×2 (08:31→08:37)
[2021-05-04] MEDS: METOPROLOL TARTRATE 100 MG TABLET PER TUBE SCH ×3 (08:32→21:02)
[2021-05-04] MEDS: ESTRADIOL 2 MG TABLET PO SCH ×2 (08:32→08:37)
[2021-05-04] MEDS: PREGABALIN 50 MG CAPSULE PO SCH ×2 (08:32→08:39)
[2021-05-04] MEDS: amLODIPine 10 MG TABLET PO SCH ×2 (08:32→08:39)
[2021-05-04] MEDS: FUROSEMIDE 40 MG/4 ML VIAL IV SCH ×3 (08:33→20:54)
[2021-05-04] MEDS: PANTOPRAZOLE 40 MG VIAL IV SCH ×2 (08:33→08:39)
[2021-05-04] MEDS: FLUCONAZOLE INJ 200 MG/100 ML PREMIX IV SCH (11:32)
[2021-05-04 12:01] LABS: Varicella IgG Index 0.2
[2021-05-05] MEDS: INSULIN LISPRO 100 UNIT/ML SUBCUT SCH ×4 (00:11→12:27)
[2021-05-05] MEDS: POTASSIUM CHLORIDE RIDER 20 MEQ/100 ML PREMIX IV PRN ×2 (00:12→02:33)
[2021-05-05] MEDS: ACYCLOVIR INJ 500 MG in SODIUM CHLORIDE 0.9% 100 ML IV SCH ×2 (02:35→10:38)
[2021-05-05] MEDS: HYDROCORTISONE 100 MG VIAL IV SCH (02:37)
[2021-05-05] MEDS: ALBUTEROL/IPRATROPIUM 3 ML NEB RESP TX SCH ×3 (02:41→11:25)
[2021-05-05] MEDS: HEPARIN 5,000 UNIT/1 ML VIAL SUBCUT SCH ×2 (03:59→10:39)
[2021-05-05] MEDS: MEROPENEM 500 MG in SODIUM CHLORIDE 0.9% 100 ML IV SCH ×2 (04:00→09:21)
[2021-05-05 05:47] LABS: Basophils % 0.1 % (0.0-0.8); Hematocrit 27.4 VOL% (35.7-47.0); Hemoglobin 8.4 GM/DL (12.0-16.0); Immature Granulocytes % 2.7 %; Immature Granulocytes Absolute 0.38 #; Lymphocytes % 21.5 % (21.3-54.2); Mean Corpuscular HGB Conc 30.7 GM/DL (32-36); Mean Corpuscular Volume 94.2 FL (87-102); Mean Platelet Volume 10.2 FL (9.6-12.0); Monocytes % 6.5 % (1.7-12.7); NRBC # 0.06 10*3/uL; Neutrophils % 69.2 % (38.7-73.9); Platelet Count 855 T/CUMM (130-400); Red Blood Count 2.91 MC/CUMM (3.8-5.5); Red Cell Distribution Width 15.4 % (9.3-17.3); White Blood Count 13.9 T/CUMM (4-12)
[2021-05-05 06:13] LABS: Calcium 8.2 MG/DL (8.5-10.1); Osmolality,Calculated 277.5 MOS/KG (273-304); Potassium 3.1 MMOL/L (3.5-5.1)
[2021-05-05] MEDS: FERRIC GLUCONATE COMPLEX 125 MG in SODIUM CHLORIDE 0.9% 100 ML IV SCH (09:13)
[2021-05-05] MEDS: PANTOPRAZOLE 40 MG VIAL IV SCH (09:14)
[2021-05-05] MEDS: FUROSEMIDE 40 MG/4 ML VIAL IV SCH (09:14)
[2021-05-05] MEDS: PREGABALIN 50 MG CAPSULE PO SCH (09:20)
[2021-05-05] MEDS: ESTRADIOL 2 MG TABLET PO SCH (09:20)
[2021-05-05] MEDS: amLODIPine 10 MG TABLET PO SCH (09:20)
[2021-05-05] MEDS: METOPROLOL TARTRATE 100 MG TABLET PER TUBE SCH (09:20)
[2021-05-05] MEDS ORDERED: POTASSIUM CHLORIDE 20 MEQ TABLET PO ONE (10:00)
[2021-05-05] MEDS: FLUCONAZOLE INJ 200 MG/100 ML PREMIX IV SCH (10:38)
[2021-05-05 12:14] VITALS: BP 125/53
[2021-05-05] MEDS ORDERED: POTASSIUM CHLORIDE 10 MEQ TABLET PO SCH (15:00)
[2021-05-05] MEDS ORDERED: MONTELUKAST 10 MG TABLET PO SCH (21:00)
== END 2021-05-05 12:27 | DRG 853 ==
LOC: SUATTDRO → N.ED 01:23 → SUATTDRO 07:10 → N.EDINP 07:10 → N.5E 10:24 → N.ICU 12:18 → N.5E 05-02 14:01
PROVIDERS: ADMIT Family Medicine; ATTEND Emergency Medicine

== ENCOUNTER 2022-01-26 08:16 | Inpatient (IN) ==
[2022-01-08 11:31] LABS: Basophils % 0.1 % (0.0-0.8); Hematocrit 41.2 VOL% (35.7-47.0); Hemoglobin 13.2 GM/DL (12.0-16.0); Immature Granulocytes % 0.5 %; Immature Granulocytes Absolute 0.06 #; Lymphocytes # 3.2 10*3/uL (1.4-4.0); Lymphocytes % 28.5 % (21.3-54.2); Mean Corpuscular Volume 90.7 FL (87-102); Monocytes % 8.3 % (1.7-12.7); Neutrophils % 62.6 % (38.7-73.9); Platelet Count 438 T/CUMM (130-400); Red Blood Count 4.54 MC/CUMM (3.8-5.5); Red Cell Distribution Width 13.1 % (9.3-17.3); White Blood Count 11.2 T/CUMM (4-12)
[2022-01-08 11:58] LABS: Calcium 8.7 MG/DL (8.5-10.1); Osmolality,Calculated 277.5 MOS/KG (273-304)
[~2022-01-26 08:16] MED LIST: BUPIVACAINE MPF 0.25% 30 ML VIAL ONE; CLINDAMYCIN INJ 900 MG/50 ML PREMIX IV ONE; LACTATED RINGERS 1,000 ML IV SCH; LIDOCAINE 1%/EPI INJ 20 ML VIAL ONE; TISSUE ADHESIVE 1 EACH APPLICATOR TOP ONE
[2022-01-26] MEDS ORDERED: LACTATED RINGERS 1,000 ML IV SCH (09:30)
[2022-01-26] MEDS ORDERED: DIAZEPAM 5 MG TABLET PO ONE (09:45)
[2022-01-26] MEDS ORDERED: fentaNYL 100 MCG/2 ML VIAL ONE (11:59)
[2022-01-26] MEDS ORDERED: ONDANSETRON 4 MG/2 ML VIAL ONE (11:59)
[2022-01-26] MEDS ORDERED: MIDAZOLAM 2 MG/2 ML VIAL ONE (11:59)
[2022-01-26] MEDS ORDERED: LIDOCAINE 2% 5 ML VIAL ONE (11:59)
[2022-01-26] MEDS ORDERED: propofoL 200 MG/20 ML VIAL IV ONE (11:59)
[2022-01-26] MEDS ORDERED: ROCURONIUM 50 MG/5 ML VIAL IV ONE ×2 (11:59→14:39)
[2022-01-26] MEDS ORDERED: SEVOFLURANE 1 UNIT/15 MINUTE INH ONE (12:00)
[2022-01-26] MEDS ORDERED: BUPIVACAINE MPF 0.25% 30 ML VIAL ONE ×2 (12:09→15:02)
[2022-01-26] MEDS ORDERED: LIDOCAINE 1%/EPI INJ 20 ML VIAL ONE (12:10)
[2022-01-26] MEDS ORDERED: CIPROFLOXACIN INJ 400 MG/200 ML PREMIX IV ONE (12:55)
[2022-01-26] MEDS ORDERED: BUPIVACAINE 0.5% 50 ML VIAL ONE (15:02)
[2022-01-26 15:27] LABS: RBC,Urine 1 /HPF (0-4); Squamous Epithelial Cell,Urine Occasional /HPF (0-10)
[2022-01-26 15:28] LABS: Bilirubin,Urine Negative (Negative); Blood, Urine Negative (Negative); Glucose,Urine (UA) Negative (Negative); Ketones,Urine Negative (Negative); Nitrite,Urine Negative (Negative); Protein,Urine Negative; Urine Appearance Clear (Clear); Urine Color Light Yellow (Yellow)
[2022-01-26 15:29] LABS: Urine Urobilinogen < 2.0 EU/DL (<2.0)
[2022-01-26] MEDS ORDERED: GLYCOPYRROLATE 0.4 MG/2 ML VIAL ONE (15:33)
[2022-01-26] MEDS ORDERED: NEOSTIGMINE 10 MG/10 ML VIAL ONE (15:33)
[2022-01-26] MEDS ORDERED: ALBUTEROL/IPRATROPIUM 3 ML NEB RESP TX PRN (15:50)
[2022-01-26] MEDS ORDERED: ACETAMINOPHEN 325 MG TABLET PO PRN (15:50)
[2022-01-26] MEDS ORDERED: CLORAZEPATE 3.75 MG TABLET PO PRN (15:55)
[2022-01-26] MEDS ORDERED: ALBUTEROL 2.5 MG/3 ML NEB RESP TX PRN ×2 (15:55→16:15)
[2022-01-26] MEDS ORDERED: DICLOFENAC 1% GEL 100 GM TUBE TOP PRN (15:55)
[2022-01-26] MEDS ORDERED: MONTELUKAST 10 MG TABLET PO PRN (15:55)
[2022-01-26] MEDS ORDERED: HYDROmorphone 1 MG/1 ML SYRINGE IV PRN ×3 (16:11→16:29)
[2022-01-26] MEDS ORDERED: diphenhydrAMINE 50 MG/1 ML VIAL IV PRN (16:12)
[2022-01-26] MEDS ORDERED: PROMETHAZINE INJ 25 MG in SODIUM CHLORIDE 0.9% 50 ML IV PRN (16:12)
[2022-01-26] MEDS ORDERED: ONDANSETRON 4 MG/2 ML VIAL IV PRN (16:12)
[2022-01-26] MEDS ORDERED: MEPERIDINE 25 MG/1 ML VIAL ONE (16:13)
[2022-01-26] MEDS: MEPERIDINE 25 MG/1 ML VIAL IV PRN ×2 (16:15→16:25)
[2022-01-26] MEDS ORDERED: PROMETHAZINE 25 MG/1 ML VIAL ONE (16:24)
[2022-01-26] MEDS ORDERED: KETOROLAC 30 MG/1 ML VIAL ONE (16:24)
[2022-01-26] MEDS: KETOROLAC 15 MG/1 ML VIAL IV SCH ×2 (16:26→21:14)
[2022-01-26] MEDS: LACTATED RINGERS 1,000 ML IV SCH (16:26)
[2022-01-26] MEDS: oxyCODONE/ACETAMINOPHEN 5-325 MG TABLET PO PRN (19:29)
[2022-01-26] MEDS: BUDESONIDE/FORMOTEROL 80-4.5 INHALER 6.9 GM INH SCH (21:14)
[2022-01-26] MEDS: AZELASTINE NASAL 137 MCG/SPRAY 30 ML BOTTLE BOTH NARES SCH (21:14)
[2022-01-26] MEDS: CYCLOBENZAPRINE 10 MG TABLET PO SCH (21:14)
[2022-01-26] MEDS: amLODIPine 10 MG TABLET PO SCH (21:14)
[2022-01-26] MEDS: METOPROLOL SUCCINATE XL 25 MG TABLET PO SCH (21:14)
[2022-01-26] MEDS: metroNIDAZOLE INJ 500 MG/100 ML PREMIX IV SCH (21:15)
[2022-01-27] MEDS: LACTATED RINGERS 1,000 ML IV SCH ×3 (02:53→15:30)
[2022-01-27] MEDS: metroNIDAZOLE INJ 500 MG/100 ML PREMIX IV SCH (05:03)
[2022-01-27] MEDS: KETOROLAC 15 MG/1 ML VIAL IV SCH ×4 (05:04→22:32)
[2022-01-27 06:02] LABS: Calcium 7.9 MG/DL (8.5-10.1); Osmolality,Calculated 277.4 MOS/KG (273-304); Potassium 4.4 MMOL/L (3.5-5.1)
[2022-01-27 06:05] LABS: Basophils % 0.1 % (0.0-0.8); Hematocrit 34.4 VOL% (35.7-47.0); Hemoglobin 11.1 GM/DL (12.0-16.0); Immature Granulocytes % 0.6 %; Immature Granulocytes Absolute 0.11 #; Lymphocytes # 1.6 10*3/uL (1.4-4.0); Lymphocytes % 8.5 % (21.3-54.2); Mean Corpuscular HGB Conc 32.3 GM/DL (32-36); Mean Corpuscular Volume 93.5 FL (87-102); Mean Platelet Volume 10.5 FL (9.6-12.0); Monocytes % 8.1 % (1.7-12.7); Neutrophils % 82.7 % (38.7-73.9); Platelet Count 296 T/CUMM (130-400); Red Blood Count 3.68 MC/CUMM (3.8-5.5); Red Cell Distribution Width 13.3 % (9.3-17.3); White Blood Count 18.5 T/CUMM (4-12)
[2022-01-27 06:28] LABS: Lymphocytes 7 % (20-55); Segmented Neutrophils 88 % (50-85); Total Cells Counted 100
[2022-01-27 06:29] LABS: Hypochromia Slight; Microcytosis Slight; Platelet Estimate Adequate
[2022-01-27] MEDS: PREGABALIN 50 MG CAPSULE PO SCH (09:02)
[2022-01-27] MEDS: METOPROLOL SUCCINATE XL 25 MG TABLET PO SCH ×2 (09:02→21:20)
[2022-01-27] MEDS: PANTOPRAZOLE 40 MG VIAL IV SCH (09:03)
[2022-01-27] MEDS ORDERED: LEVOFLOXACIN INJ 500 MG/100 ML PREMIX IV ONE (09:52)
[2022-01-27] MEDS: AZELASTINE NASAL 137 MCG/SPRAY 30 ML BOTTLE BOTH NARES SCH ×2 (11:00→21:21)
[2022-01-27] MEDS: BUDESONIDE/FORMOTEROL 80-4.5 INHALER 6.9 GM INH SCH ×2 (11:00→21:21)
[2022-01-27] MEDS ORDERED: BISACODYL 10 MG SUPP RECTAL ONE (12:00)
[2022-01-27] MEDS: ALBUTEROL/IPRATROPIUM 3 ML NEB RESP TX SCH ×3 (12:43→19:35)
[2022-01-27] MEDS: ENOXAPARIN 40 MG/0.4 ML SYRINGE SUBCUT SCH (12:44)
[2022-01-27] MEDS: guaiFENesin 200 MG/10 ML UDCUP PO SCH ×4 (13:31→23:15)
[2022-01-27] MEDS: amLODIPine 10 MG TABLET PO SCH (21:20)
[2022-01-27] MEDS: CYCLOBENZAPRINE 10 MG TABLET PO SCH (21:28)
[2022-01-27] MEDS: oxyCODONE/ACETAMINOPHEN 5-325 MG TABLET PO PRN (22:32)
[2022-01-28] MEDS: KETOROLAC 15 MG/1 ML VIAL IV SCH ×4 (03:33→22:54)
[2022-01-28] MEDS: guaiFENesin 200 MG/10 ML UDCUP PO SCH ×5 (03:33→20:27)
[2022-01-28] MEDS: LACTATED RINGERS 1,000 ML IV SCH ×4 (03:34→21:00)
[2022-01-28 05:34] LABS: Basophils % 0.1 % (0.0-0.8); Hematocrit 34.7 VOL% (35.7-47.0); Immature Granulocytes % 0.6 %; Immature Granulocytes Absolute 0.09 #; Lymphocytes % 13.1 % (21.3-54.2); Mean Corpuscular HGB Conc 31.7 GM/DL (32-36); Mean Corpuscular Volume 92.5 FL (87-102); Mean Platelet Volume 10.6 FL (9.6-12.0); Monocytes % 9.2 % (1.7-12.7); Platelet Count 263 T/CUMM (130-400); Red Blood Count 3.75 MC/CUMM (3.8-5.5); Red Cell Distribution Width 13.5 % (9.3-17.3); White Blood Count 15.1 T/CUMM (4-12)
[2022-01-28 06:04] LABS: Calcium 8.3 MG/DL (8.5-10.1); Osmolality,Calculated 272.8 MOS/KG (273-304); Potassium 3.3 MMOL/L (3.5-5.1)
[2022-01-28] MEDS: ALBUTEROL/IPRATROPIUM 3 ML NEB RESP TX SCH ×3 (07:25→20:56)
[2022-01-28] MEDS: METOPROLOL SUCCINATE XL 25 MG TABLET PO SCH ×2 (08:57→23:35)
[2022-01-28] MEDS: PREGABALIN 50 MG CAPSULE PO SCH (08:57)
[2022-01-28] MEDS ORDERED: POTASSIUM CHLORIDE 20 MEQ TABLET PO ONE (09:00)
[2022-01-28] MEDS: BUDESONIDE/FORMOTEROL 80-4.5 INHALER 6.9 GM INH SCH ×2 (09:04→21:39)
[2022-01-28] MEDS: oxyCODONE/ACETAMINOPHEN 5-325 MG TABLET PO PRN (09:04)
[2022-01-28] MEDS: PANTOPRAZOLE 40 MG VIAL IV SCH (09:04)
[2022-01-28] MEDS: ENOXAPARIN 40 MG/0.4 ML SYRINGE SUBCUT SCH (10:22)
[2022-01-28] MEDS ORDERED: POTASSIUM CHLORIDE 10 MEQ TABLET PO SCH (10:30)
[2022-01-28] MEDS: AZELASTINE NASAL 137 MCG/SPRAY 30 ML BOTTLE BOTH NARES SCH ×2 (10:42→21:39)
[2022-01-28 18:23] LABS: Hematocrit 36.5 VOL% (35.7-47.0); Hemoglobin 11.9 GM/DL (12.0-16.0); Immature Granulocytes % 0.6 %; Immature Granulocytes Absolute 0.14 #; Lymphocytes # 0.5 10*3/uL (1.4-4.0); Lymphocytes % 2.3 % (21.3-54.2); Mean Corpuscular HGB Conc 32.6 GM/DL (32-36); Mean Corpuscular Volume 91.3 FL (87-102); Mean Platelet Volume 10.1 FL (9.6-12.0); Monocytes % 5.7 % (1.7-12.7); Neutrophils % 91.4 % (38.7-73.9); Platelet Count 294 T/CUMM (130-400); Red Cell Distribution Width 13.4 % (9.3-17.3); White Blood Count 22.2 T/CUMM (4-12)
[2022-01-28 18:46] LABS: Band Neutrophils 1 % (0-10); Lymphocytes 2 % (20-55); Platelet Estimate Normal; Segmented Neutrophils 94 % (50-85); Total Cells Counted 100
[2022-01-28 18:57] LABS: Calcium 8.5 MG/DL (8.5-10.1); Osmolality,Calculated 270.2 MOS/KG (273-304); Potassium 3.6 MMOL/L (3.5-5.1)
[2022-01-28] MEDS ORDERED: ETOMIDATE 40 MG/20 ML VIAL IV ONE (19:24)
[2022-01-28] MEDS ORDERED: ROCURONIUM 50 MG/5 ML VIAL IV ONE (19:24)
[2022-01-28] MEDS ORDERED: SEVOFLURANE 1 UNIT/15 MINUTE INH ONE (19:24)
[2022-01-28] MEDS ORDERED: propofoL 200 MG/20 ML VIAL IV ONE (19:24)
[2022-01-28] MEDS ORDERED: LIDOCAINE 2% 5 ML VIAL ONE (19:24)
[2022-01-28] MEDS ORDERED: MIDAZOLAM 2 MG/2 ML VIAL ONE ×2 (19:24→20:19)
[2022-01-28] MEDS ORDERED: fentaNYL 100 MCG/2 ML VIAL ONE (19:24)
[2022-01-28] MEDS ORDERED: SUCCINYLCHOLINE 200 MG/10 ML VIAL ONE (19:24)
[2022-01-28] MEDS ORDERED: PHENYLEPHRINE DRIP 20 MG/250 ML PREMIX IV ONE (19:33)
[2022-01-28] MEDS ORDERED: ALBUMIN 5% 25.0 GM/500 ML VIAL IV ONE (19:33)
[2022-01-28] MEDS ORDERED: MAGNESIUM SULF RIDER 4 GM/100 ML PREMIX IV PRN (21:13)
[2022-01-28] MEDS ORDERED: MAGNESIUM SULF RIDER 2 GM/50 ML PREMIX IV PRN (21:13)
[2022-01-28] MEDS ORDERED: METOPROLOL TARTRATE 5 MG/5 ML VIAL IV PRN (21:19)
[2022-01-28] MEDS: CYCLOBENZAPRINE 10 MG TABLET PO SCH (21:39)
[2022-01-28 21:49] LABS: ABG Base Excess -3.5 MMOL/L (-2.5-2.5); ABG HCO3 23.3 MMOL/L (20-26); ABG Oxygen Saturation 99.2 % (95-100); ABG PCO2 49.7 MM HG (35-48); ABG PH 7.289 (7.35-7.45); ABG PO2 295.6 MM HG (80-95); ABG TCO2 24.8 MMOL/L (23-27)
[2022-01-28] MEDS: MEROPENEM 500 MG in SODIUM CHLORIDE 0.9% 100 ML IV SCH (22:54)
[2022-01-28] MEDS: metroNIDAZOLE INJ 500 MG/100 ML PREMIX IV SCH (23:34)
[2022-01-28] MEDS: amLODIPine 10 MG TABLET PO SCH (23:35)
[2022-01-29 00:27] LABS: Basophils % 0.1 % (0.0-0.8); Hematocrit 35.7 VOL% (35.7-47.0); Hemoglobin 11.5 GM/DL (12.0-16.0); Immature Granulocytes % 1.1 %; Immature Granulocytes Absolute 0.32 #; Lymphocytes # 1.7 10*3/uL (1.4-4.0); Lymphocytes % 5.9 % (21.3-54.2); Mean Corpuscular HGB Conc 32.2 GM/DL (32-36); Mean Corpuscular Volume 93.9 FL (87-102); Mean Platelet Volume 10.7 FL (9.6-12.0); Monocytes % 5.4 % (1.7-12.7); Neutrophils % 87.5 % (38.7-73.9); Platelet Count 270 T/CUMM (130-400); Red Cell Distribution Width 13.4 % (9.3-17.3); White Blood Count 28.3 T/CUMM (4-12)
[2022-01-29 00:45] LABS: Albumin 2.4 G/DL (3.4-5.0); Bilirubin,Total 0.7 MG/DL (0.20-1.00); Calcium 7.7 MG/DL (8.5-10.1); Osmolality,Calculated 277.7 MOS/KG (273-304); Potassium 3.4 MMOL/L (3.5-5.1); Total Protein 5.4 G/DL (6.4-8.2)
[2022-01-29 01:01] LABS: Lymphocytes 3 % (20-55); Platelet Estimate Adequate; Segmented Neutrophils 90 % (50-85); Total Cells Counted 100
[2022-01-29] MEDS: LACTATED RINGERS 1,000 ML IV SCH ×5 (02:50→18:42)
[2022-01-29 03:56] LABS: Basophils % 0.1 % (0.0-0.8); Hematocrit 30.7 VOL% (35.7-47.0); Hemoglobin 9.8 GM/DL (12.0-16.0); Immature Granulocytes % 0.7 %; Immature Granulocytes Absolute 0.17 #; Lymphocytes # 1.8 10*3/uL (1.4-4.0); Lymphocytes % 7.8 % (21.3-54.2); Mean Corpuscular HGB Conc 31.9 GM/DL (32-36); Mean Corpuscular Volume 92.7 FL (87-102); Mean Platelet Volume 9.6 FL (9.6-12.0); Monocytes % 5.3 % (1.7-12.7); Neutrophils % 86.1 % (38.7-73.9); Platelet Count 230 T/CUMM (130-400); Red Blood Count 3.31 MC/CUMM (3.8-5.5); Red Cell Distribution Width 13.5 % (9.3-17.3); White Blood Count 23.2 T/CUMM (4-12)
[2022-01-29 04:06] LABS: ABG Base Excess 0.3 MMOL/L (-2.5-2.5); ABG HCO3 24.7 MMOL/L (20-26); ABG Oxygen Saturation 99.6 % (95-100); ABG PCO2 42.8 MM HG (35-48); ABG PH 7.383 (7.35-7.45); ABG TCO2 23.1 MMOL/L (23-27); Allen Test Positive; Pt O2 Delivery Device Ventilator
[2022-01-29 04:15] LABS: Calcium 7.8 MG/DL (8.5-10.1); Osmolality,Calculated 277.5 MOS/KG (273-304); Potassium 3.5 MMOL/L (3.5-5.1)
[2022-01-29] MEDS: KETOROLAC 15 MG/1 ML VIAL IV SCH ×2 (04:15→09:07)
[2022-01-29] MEDS: MEROPENEM 500 MG in SODIUM CHLORIDE 0.9% 100 ML IV SCH ×4 (04:15→21:34)
[2022-01-29 04:49] LABS: Lymphocytes 9 % (20-55); Segmented Neutrophils 86 % (50-85); Total Cells Counted 100
[2022-01-29 04:50] LABS: Platelet Estimate Adequate
[2022-01-29] MEDS: metroNIDAZOLE INJ 500 MG/100 ML PREMIX IV SCH ×3 (06:15→22:59)
[2022-01-29] MEDS: ALBUTEROL/IPRATROPIUM 3 ML NEB RESP TX SCH ×3 (07:17→18:58)
[2022-01-29] MEDS: PANTOPRAZOLE 40 MG VIAL IV SCH (09:01)
[2022-01-29] MEDS: ENOXAPARIN 40 MG/0.4 ML SYRINGE SUBCUT SCH (09:01)
[2022-01-29] MEDS ORDERED: MIDAZOLAM 2 MG/2 ML VIAL ONE ×2 (09:17)
[2022-01-29] MEDS ORDERED: ROCURONIUM 50 MG/5 ML VIAL IV ONE (09:17)
[2022-01-29] MEDS ORDERED: SUGAMMADEX 200 MG/2 ML VIAL IV ONE (10:21)
[2022-01-29] MEDS ORDERED: MEPERIDINE 25 MG/1 ML VIAL ONE (10:52)
[2022-01-29] MEDS: MEPERIDINE 25 MG/1 ML VIAL IV PRN ×2 (10:55→11:05)
[2022-01-29] MEDS ORDERED: ONDANSETRON 4 MG/2 ML VIAL IV PRN (10:59)
[2022-01-29] MEDS ORDERED: diphenhydrAMINE 50 MG/1 ML VIAL IV PRN (10:59)
[2022-01-29] MEDS ORDERED: HYDROmorphone 2 MG/1 ML VIAL IV PRN (10:59)
[2022-01-29] MEDS ORDERED: PROMETHAZINE INJ 25 MG in SODIUM CHLORIDE 0.9% 50 ML IV PRN (10:59)
[2022-01-29] MEDS ORDERED: PROMETHAZINE 25 MG/1 ML VIAL ONE (11:06)
[2022-01-29] MEDS: HYDROmorphone 2 MG/1 ML VIAL IV PRN ×4 (12:15→18:46)
[2022-01-29] MEDS: AZELASTINE NASAL 137 MCG/SPRAY 30 ML BOTTLE BOTH NARES SCH ×2 (13:47→20:46)
[2022-01-29] MEDS: BUDESONIDE/FORMOTEROL 80-4.5 INHALER 6.9 GM INH SCH ×2 (13:47→20:46)
[2022-01-29] MEDS ORDERED: diphenhydrAMINE 50 MG/1 ML VIAL ONE (18:32)
[2022-01-29] MEDS: diphenhydrAMINE 50 MG/1 ML VIAL IV PRN (18:39)
[2022-01-29] MEDS: CYCLOBENZAPRINE 10 MG TABLET PO SCH (20:40)
[2022-01-30] MEDS: guaiFENesin 200 MG/10 ML UDCUP PO PRN ×4 (00:51→22:33)
[2022-01-30] MEDS: HYDROmorphone 2 MG/1 ML VIAL IV PRN ×4 (01:34→20:38)
[2022-01-30] MEDS: diphenhydrAMINE 50 MG/1 ML VIAL IV PRN ×3 (01:44→15:26)
[2022-01-30 03:42] LABS: ABG Base Excess -1.6 MMOL/L (-2.5-2.5); ABG HCO3 22.4 MMOL/L (20-26); ABG Oxygen Saturation 96.3 % (95-100); ABG PCO2 35.3 MM HG (35-48); ABG TCO2 23.5 MMOL/L (23-27)
[2022-01-30] MEDS: LACTATED RINGERS 1,000 ML IV SCH ×3 (03:49→20:54)
[2022-01-30] MEDS: MEROPENEM 500 MG in SODIUM CHLORIDE 0.9% 100 ML IV SCH ×4 (03:49→22:21)
[2022-01-30 05:08] LABS: Basophils % 0.1 % (0.0-0.8); Hematocrit 33.3 VOL% (35.7-47.0); Hemoglobin 10.2 GM/DL (12.0-16.0); Immature Granulocytes % 0.6 %; Lymphocytes # 0.7 10*3/uL (1.4-4.0); Mean Corpuscular HGB Conc 30.6 GM/DL (32-36); Mean Platelet Volume 11.1 FL (9.6-12.0); Neutrophils % 89.3 % (38.7-73.9); Platelet Count 272 T/CUMM (130-400); Red Blood Count 3.47 MC/CUMM (3.8-5.5); Red Cell Distribution Width 13.8 % (9.3-17.3); White Blood Count 17.8 T/CUMM (4-12)
[2022-01-30 05:30] LABS: Calcium 8.3 MG/DL (8.5-10.1); Osmolality,Calculated 273.7 MOS/KG (273-304); Potassium 3.3 MMOL/L (3.5-5.1)
[2022-01-30 05:32] LABS: Hypochromia 1+; Lymphocytes 6 % (20-55); Microcytosis 1+; Platelet Estimate Adequate; Segmented Neutrophils 92 % (50-85); Total Cells Counted 100
[2022-01-30] MEDS: metroNIDAZOLE INJ 500 MG/100 ML PREMIX IV SCH ×3 (06:26→22:22)
[2022-01-30] MEDS ORDERED: POTASSIUM CHLORIDE RIDER 20 MEQ/100 ML PREMIX IV PRN (06:43)
[2022-01-30] MEDS: ALBUTEROL/IPRATROPIUM 3 ML NEB RESP TX SCH ×3 (07:50→19:04)
[2022-01-30] MEDS: PANTOPRAZOLE 40 MG VIAL IV SCH (08:14)
[2022-01-30] MEDS: AZELASTINE NASAL 137 MCG/SPRAY 30 ML BOTTLE BOTH NARES SCH ×2 (08:15→20:40)
[2022-01-30] MEDS: POTASSIUM CHLORIDE RIDER 10 MEQ/100 ML PREMIX IV PRN ×4 (08:19→12:38)
[2022-01-30] MEDS: BUDESONIDE/FORMOTEROL 80-4.5 INHALER 6.9 GM INH SCH ×2 (08:25→20:40)
[2022-01-30] MEDS: ENOXAPARIN 40 MG/0.4 ML SYRINGE SUBCUT SCH (10:20)
[2022-01-30] MEDS: CYCLOBENZAPRINE 10 MG TABLET PO SCH (22:21)
[2022-01-31] MEDS: ALBUTEROL/IPRATROPIUM 3 ML NEB RESP TX PRN ×2 (03:51→10:22)
[2022-01-31 04:57] LABS: Basophils % 0.1 % (0.0-0.8); Hematocrit 33.6 VOL% (35.7-47.0); Hemoglobin 10.6 GM/DL (12.0-16.0); Immature Granulocytes % 0.7 %; Lymphocytes # 1.1 10*3/uL (1.4-4.0); Lymphocytes % 7.7 % (21.3-54.2); Mean Corpuscular HGB Conc 31.5 GM/DL (32-36); Mean Corpuscular Volume 94.6 FL (87-102); Mean Platelet Volume 10.4 FL (9.6-12.0); Monocytes % 6.3 % (1.7-12.7); Neutrophils % 85.2 % (38.7-73.9); Platelet Count 365 T/CUMM (130-400); Red Blood Count 3.55 MC/CUMM (3.8-5.5); Red Cell Distribution Width 13.6 % (9.3-17.3); White Blood Count 14.7 T/CUMM (4-12)
[2022-01-31 05:10] LABS: Calcium 8.1 MG/DL (8.5-10.1); Osmolality,Calculated 272.7 MOS/KG (273-304); Potassium 3.4 MMOL/L (3.5-5.1)
[2022-01-31 05:21] LABS: Hypochromia Slight; Lymphocytes 9 % (20-55); Microcytosis Slight; Platelet Estimate Adequate; Segmented Neutrophils 85 % (50-85); Total Cells Counted 100
[2022-01-31] MEDS: MEROPENEM 500 MG in SODIUM CHLORIDE 0.9% 100 ML IV SCH ×4 (05:25→23:20)
[2022-01-31] MEDS: POTASSIUM CHLORIDE RIDER 10 MEQ/100 ML PREMIX IV PRN ×3 (05:56→08:45)
[2022-01-31] MEDS: metroNIDAZOLE INJ 500 MG/100 ML PREMIX IV SCH ×2 (06:00→14:13)
[2022-01-31] MEDS: ALBUTEROL/IPRATROPIUM 3 ML NEB RESP TX SCH ×3 (07:11→19:08)
[2022-01-31] MEDS: LACTATED RINGERS 1,000 ML IV SCH ×3 (07:19→17:12)
[2022-01-31] MEDS: PANTOPRAZOLE 40 MG VIAL IV SCH (08:45)
[2022-01-31] MEDS: ENOXAPARIN 40 MG/0.4 ML SYRINGE SUBCUT SCH (09:06)
[2022-01-31] MEDS: BUDESONIDE/FORMOTEROL 80-4.5 INHALER 6.9 GM INH SCH ×2 (09:15→21:03)
[2022-01-31] MEDS: AZELASTINE NASAL 137 MCG/SPRAY 30 ML BOTTLE BOTH NARES SCH ×2 (09:15→21:00)
[2022-01-31] MEDS: diphenhydrAMINE 50 MG/1 ML VIAL IV PRN (09:18)
[2022-01-31] MEDS: HYDROmorphone 2 MG/1 ML VIAL IV PRN ×3 (09:20→20:59)
[2022-01-31 14:01] LABS: M. Tuberculosis PCR Result Negative (Negative); M. Tuberculosis PCR Source BRONCH WASH
[2022-01-31] MEDS: CYCLOBENZAPRINE 10 MG TABLET PO SCH (20:59)
[2022-01-31] MEDS: ALUMINUM/MAGNES/SIMETH MAX STR 30 ML UDCUP PO PRN (20:59)
[2022-01-31] MEDS: ONDANSETRON 4 MG/2 ML VIAL IV PRN (23:30)
[2022-02-01] MEDS: metroNIDAZOLE INJ 500 MG/100 ML PREMIX IV SCH ×2 (01:41→07:08)
[2022-02-01] MEDS: LACTATED RINGERS 1,000 ML IV SCH ×5 (05:30→21:19)
[2022-02-01] MEDS: MEROPENEM 500 MG in SODIUM CHLORIDE 0.9% 100 ML IV SCH ×4 (05:30→21:04)
[2022-02-01 05:41] LABS: Basophils % 0.3 % (0.0-0.8); Hematocrit 35.8 VOL% (35.7-47.0); Hemoglobin 11.2 GM/DL (12.0-16.0); Immature Granulocytes % 1.3 %; Immature Granulocytes Absolute 0.13 #; Lymphocytes # 1.4 10*3/uL (1.4-4.0); Lymphocytes % 13.1 % (21.3-54.2); Mean Corpuscular HGB Conc 31.3 GM/DL (32-36); Mean Corpuscular Volume 92.5 FL (87-102); Mean Platelet Volume 11.5 FL (9.6-12.0); Neutrophils % 78.3 % (38.7-73.9); Red Blood Count 3.87 MC/CUMM (3.8-5.5); Red Cell Distribution Width 13.7 % (9.3-17.3); White Blood Count 10.3 T/CUMM (4-12)
[2022-02-01 05:48] LABS: Platelet Count 101 T/CUMM (130-400)
[2022-02-01 05:58] LABS: Calcium 7.9 MG/DL (8.5-10.1); Osmolality,Calculated 273.5 MOS/KG (273-304); Potassium 4.1 MMOL/L (3.5-5.1)
[2022-02-01] MEDS: ONDANSETRON 4 MG/2 ML VIAL IV PRN (07:08)
[2022-02-01] MEDS: ALBUTEROL/IPRATROPIUM 3 ML NEB RESP TX SCH ×3 (07:44→19:55)
[2022-02-01] MEDS: HYDROmorphone 2 MG/1 ML VIAL IV PRN ×3 (08:16→18:43)
[2022-02-01] MEDS: AZELASTINE NASAL 137 MCG/SPRAY 30 ML BOTTLE BOTH NARES SCH ×2 (08:58→21:04)
[2022-02-01] MEDS: BUDESONIDE/FORMOTEROL 80-4.5 INHALER 6.9 GM INH SCH ×2 (08:58→21:05)
[2022-02-01] MEDS: PANTOPRAZOLE 40 MG VIAL IV SCH (08:59)
[2022-02-01] MEDS ORDERED: ALBUTEROL/IPRATROPIUM 3 ML NEB RESP TX PRN (10:30)
[2022-02-01] MEDS: ENOXAPARIN 40 MG/0.4 ML SYRINGE SUBCUT SCH (10:37)
[2022-02-01] MEDS ORDERED: propofoL 200 MG/20 ML VIAL IV ONE (11:08)
[2022-02-01] MEDS ORDERED: ONDANSETRON 4 MG/2 ML VIAL ONE ×2 (11:08→12:06)
[2022-02-01] MEDS ORDERED: LIDOCAINE 2% 5 ML VIAL ONE (11:08)
[2022-02-01] MEDS ORDERED: MIDAZOLAM 2 MG/2 ML VIAL ONE (11:09)
[2022-02-01] MEDS ORDERED: fentaNYL 100 MCG/2 ML VIAL ONE (11:09)
[2022-02-01] MEDS ORDERED: SEVOFLURANE 1 UNIT/15 MINUTE INH ONE (12:06)
[2022-02-01] MEDS ORDERED: PHENYLEPHRINE 1 MG/10 ML SYRINGE IV ONE (12:06)
[2022-02-01] MEDS: CYCLOBENZAPRINE 10 MG TABLET PO SCH (21:04)
[2022-02-02] MEDS: ALBUTEROL/IPRATROPIUM 3 ML NEB RESP TX SCH ×4 (00:50→19:45)
[2022-02-02] MEDS: MEROPENEM 500 MG in SODIUM CHLORIDE 0.9% 100 ML IV SCH ×4 (03:38→20:41)
[2022-02-02] MEDS: HYDROmorphone 2 MG/1 ML VIAL IV PRN ×3 (03:39→09:39)
[2022-02-02] MEDS: LACTATED RINGERS 1,000 ML IV SCH (03:39)
[2022-02-02] MEDS: diphenhydrAMINE 50 MG/1 ML VIAL IV PRN ×2 (03:42→06:47)
[2022-02-02 08:29] LABS: Basophils % 0.4 % (0.0-0.8); Hematocrit 34.1 VOL% (35.7-47.0); Hemoglobin 10.9 GM/DL (12.0-16.0); Immature Granulocytes % 2.9 %; Immature Granulocytes Absolute 0.32 #; Lymphocytes # 1.6 10*3/uL (1.4-4.0); Lymphocytes % 14.7 % (21.3-54.2); Mean Corpuscular Volume 91.7 FL (87-102); Mean Platelet Volume 9.5 FL (9.6-12.0); Monocytes % 10.5 % (1.7-12.7); Neutrophils % 71.5 % (38.7-73.9); Platelet Count 483 T/CUMM (130-400); Red Blood Count 3.72 MC/CUMM (3.8-5.5); Red Cell Distribution Width 13.8 % (9.3-17.3); White Blood Count 10.9 T/CUMM (4-12)
[2022-02-02] MEDS: ENOXAPARIN 40 MG/0.4 ML SYRINGE SUBCUT SCH (09:40)
[2022-02-02] MEDS: AZELASTINE NASAL 137 MCG/SPRAY 30 ML BOTTLE BOTH NARES SCH ×2 (09:40→20:40)
[2022-02-02] MEDS: PANTOPRAZOLE 40 MG VIAL IV SCH (09:40)
[2022-02-02] MEDS: BUDESONIDE/FORMOTEROL 80-4.5 INHALER 6.9 GM INH SCH ×2 (09:40→20:41)
[2022-02-02 09:52] LABS: Calcium 7.7 MG/DL (8.5-10.1); Osmolality,Calculated 276.4 MOS/KG (273-304); Potassium 3.5 MMOL/L (3.5-5.1)
[2022-02-02] MEDS ORDERED: FUROSEMIDE 20 MG/2 ML VIAL IV ONE ×2 (10:00→15:00)
[2022-02-02] MEDS: ONDANSETRON 4 MG/2 ML VIAL IV PRN ×2 (11:27→20:37)
[2022-02-02] MEDS: FLUCONAZOLE INJ 200 MG/100 ML PREMIX IV SCH (11:33)
[2022-02-02] MEDS ORDERED: POTASSIUM CHLORIDE 20 MEQ TABLET PO ONE (15:00)
[2022-02-02] MEDS: ALUMINUM/MAGNES/SIMETH MAX STR 30 ML UDCUP PO PRN (17:12)
[2022-02-02] MEDS: CYCLOBENZAPRINE 10 MG TABLET PO SCH (20:40)
[2022-02-02] MEDS ORDERED: HYDROmorphone 1 MG/1 ML SYRINGE IV PRN ×2 (21:00)
[2022-02-03] MEDS: ALBUTEROL/IPRATROPIUM 3 ML NEB RESP TX SCH ×4 (01:36→19:15)
[2022-02-03] MEDS: MEROPENEM 500 MG in SODIUM CHLORIDE 0.9% 100 ML IV SCH ×2 (04:17→09:45)
[2022-02-03 06:51] LABS: Basophils # 0.1 10*3/uL (0.0-0.2); Basophils % 0.6 % (0.0-0.8); Hematocrit 32.5 VOL% (35.7-47.0); Hemoglobin 10.6 GM/DL (12.0-16.0); Immature Granulocytes % 4.1 %; Immature Granulocytes Absolute 0.43 #; Lymphocytes # 1.7 10*3/uL (1.4-4.0); Lymphocytes % 16.2 % (21.3-54.2); Mean Corpuscular HGB Conc 32.6 GM/DL (32-36); Mean Platelet Volume 9.5 FL (9.6-12.0); Monocytes % 11.2 % (1.7-12.7); Neutrophils % 67.9 % (38.7-73.9); Platelet Count 534 T/CUMM (130-400); Red Blood Count 3.61 MC/CUMM (3.8-5.5); Red Cell Distribution Width 13.6 % (9.3-17.3); White Blood Count 10.6 T/CUMM (4-12)
[2022-02-03] MEDS: ONDANSETRON 4 MG/2 ML VIAL IV PRN ×2 (07:09→22:37)
[2022-02-03 07:17] LABS: Calcium 7.7 MG/DL (8.5-10.1); Osmolality,Calculated 277.4 MOS/KG (273-304); Potassium 3.4 MMOL/L (3.5-5.1)
[2022-02-03] MEDS: ENOXAPARIN 40 MG/0.4 ML SYRINGE SUBCUT SCH (09:41)
[2022-02-03] MEDS: POTASSIUM CHLORIDE RIDER 10 MEQ/100 ML PREMIX IV SCH ×2 (09:41→12:57)
[2022-02-03] MEDS: PANTOPRAZOLE 40 MG VIAL IV SCH (09:42)
[2022-02-03] MEDS: AZELASTINE NASAL 137 MCG/SPRAY 30 ML BOTTLE BOTH NARES SCH ×2 (09:44→22:37)
[2022-02-03] MEDS: BUDESONIDE/FORMOTEROL 80-4.5 INHALER 6.9 GM INH SCH ×2 (09:44→22:37)
[2022-02-03] MEDS: FLUCONAZOLE INJ 200 MG/100 ML PREMIX IV SCH (11:08)
[2022-02-03] MEDS ORDERED: ESTRADIOL 0.01% VAG CREAM 42.5 GM TUBE VAG SCH (12:00)
[2022-02-03] MEDS ORDERED: HYOSCYAMINE 0.125 MG TABLET SL PRN (12:00)
[2022-02-03] MEDS ORDERED: KETOROLAC 30 MG/1 ML VIAL IV ONE (12:00)
[2022-02-03] MEDS ORDERED: SIMETHICONE CHEW 125 MG TABLET PO PRN (12:02)
[2022-02-03] MEDS: KETOROLAC 10 MG TABLET PO SCH ×2 (15:04→22:36)
[2022-02-03] MEDS ORDERED: CIPROFLOXACIN 500 MG TABLET PO SCH (21:00)
[2022-02-03] MEDS: CYCLOBENZAPRINE 10 MG TABLET PO SCH (22:36)
[2022-02-03] MEDS: PANTOPRAZOLE 40 MG TABLET PO SCH (22:36)
[2022-02-04] MEDS: ALBUTEROL/IPRATROPIUM 3 ML NEB RESP TX SCH ×2 (00:45→07:20)
[2022-02-04] MEDS: KETOROLAC 10 MG TABLET PO SCH ×2 (04:19→08:27)
[2022-02-04] MEDS: ALUMINUM/MAGNES/SIMETH MAX STR 30 ML UDCUP PO PRN (04:21)
[2022-02-04 07:29] VITALS: BP 118/91
[2022-02-04] MEDS: BUDESONIDE/FORMOTEROL 80-4.5 INHALER 6.9 GM INH SCH (08:27)
[2022-02-04] MEDS: AZELASTINE NASAL 137 MCG/SPRAY 30 ML BOTTLE BOTH NARES SCH (08:27)
[2022-02-04] MEDS: ENOXAPARIN 40 MG/0.4 ML SYRINGE SUBCUT SCH (08:27)
[2022-02-04] MEDS: PANTOPRAZOLE 40 MG TABLET PO SCH (08:27)
[2022-02-04] MEDS: ONDANSETRON 4 MG/2 ML VIAL IV PRN (08:32)
[2022-02-04] MEDS ORDERED: FLUCONAZOLE 200 MG TABLET PO SCH (09:00)
== END 2022-02-04 12:24 | disposition home health service (06) | DRG 329 ==
LOC: N.OR 08:16 → N.SDSINP 08:50 → N.3E 15:50 → SUATTDRO 15:50 → N.3E 18:45 → N.ICU 01-28 18:51 → N.5E 01-31 13:44
PROVIDERS: ADMIT Surgery; ATTEND Hospitalist